=== PATIENT | female | born 1950 | race Caucasian/White ===

== ENCOUNTER → 2016-03-21 | Outpatient (CLI) | payer MEDICARE ==
[2016-03-21 15:48] LABS: CH 30.3; CHCM 33.6; HCT 38.4 % (34.0-46.0); HDW 2.74; HGB 12.9 gm/dL (11.4-16.0); MCH 30.4 pg (25.0-35.0); MCHC 33.6 g/dL (31.0-37.0); MCV 90.6 fL (80.0-100.0); Mean Platelet Volume 7.3; RBC 4.24 m/uL (3.80-5.40); RDW 13.6 % (11.5-15.5); WBC 6.6 k/uL (3.8-10.6)
[2016-03-21 15:55] LABS: Prothrombin Time 10.4 sec (9.0-12.0)
== END | disposition home or self-care (01) ==
LOC: LABWHC1 15:27
PROVIDERS: ATTEND Internal Medicine Gastroenterology
DX: K74.60 Unspecified cirrhosis of liver (principal)
CPT/HCPCS: 36415; 82105; 85027; 85610

== ENCOUNTER → 2016-09-12 | Outpatient (CLI) | payer MEDICARE ==
--- NOTE | 2016-09-13 13:53 | MM ---
Reason for exam: screening (asymptomatic). Last mammogram was performed 10 months ago. History: Patient is postmenopausal. Family history of breast cancer in mother at age 82 and breast cancer in aunt at age 53. Benign excisional biopsy of the right breast, 1984. Took estrogen for 20 years beginning at age 34. Physical Findings: A clinical breast exam by your physician is recommended on an annual basis and results should be correlated with mammographic findings. MG Screening Mammo w CAD Bilateral CC and MLO view(s) were taken. Prior study comparison: November 24, 2015, right breast MG diagnostic mammo RT w CAD. June 09, 2015, right breast MG work up mamm w CAD RT. There are scattered fibroglandular densities. Finding: There are grouped/clustered calcifications in the right breast. Increase in number of calcifications since November 24, 2015 and June 09, 2015. ASSESSMENT: Incomplete: need additional imaging evaluation, BI-RAD 0 RECOMMENDATION: Special view mammogram of the left breast. [facility] will attempt to contact patient to return for supplemental views.
== END | disposition home or self-care (01) ==
LOC: RADMAMWWP 12:30
PROVIDERS: ATTEND Internal Medicine
DX: Z12.31 Encounter for screening mammogram for malignant neoplasm of breast (principal); R92.2 Inconclusive mammogram

== ENCOUNTER → 2016-09-26 | Outpatient (CLI) | payer MEDICARE ==
--- NOTE | 2016-09-27 14:38 | MM ---
Reason for exam: additional evaluation requested from abnormal screening. Last mammogram was performed less than 1 month ago. History: Patient is postmenopausal. Family history of breast cancer in mother at age 82 and breast cancer in aunt at age 53. Benign excisional biopsy of the right breast, 1984. Took estrogen for 20 years beginning at age 34. Physical Findings: Nurse did not find any significant physical abnormalities on exam. MG Work Up Mamm w CAD LT LM, CC with magnification, and LM with magnification view(s) were taken of the left breast. Prior study comparison: September 12, 2016, bilateral MG screening mammo w CAD. November 24, 2015, right breast MG diagnostic mammo RT w CAD. June 09, 2015, right breast MG work up mamm w CAD RT. Finding: There are suspicious round, heterogeneous, grouped calcifications in the upper outer quadrant, posterior middle position of the left breast. Increase in number of calcifications since September 12, 2016, November 24, 2015, and June 09, 2015. These results were verbally communicated with the patient and result sheet given to the patient on 09/26/16. ASSESSMENT: Suspicious, BI-RAD 4 RECOMMENDATION: Stereotactic core biopsy of the left breast. Called with mammographic findings and has scheduled an appointment for the patient for 10/03/16t 11:[address] Pedraza. PRELIMINARY REPORT CALLED AND FAXED TO DR. PEDRAZA ON 09/26/16.AT 300/TMP.
== END | disposition home or self-care (01) ==
LOC: RADMAMWWP 10:52
PROVIDERS: ATTEND Internal Medicine
DX: R92.8 Other abnormal and inconclusive findings on diagnostic imaging of breast (principal)

== ENCOUNTER → 2016-10-07 | Day surgery (SDC) | payer MEDICARE ==
[2016-10-07 10:31] VITALS: RESP 16; TEMP 98.3; BMI 34.3
[2016-10-07 11:54] VITALS: BP 161/71; PULSE 67
--- NOTE | 2016-10-07 12:41 | MM ---
EXAMINATION TYPE: MG stereo VAD BX LT DATE OF EXAM: 10/07/2016 COMPARISON: Prior mammograms September 26, 2016 and older studies. CLINICAL HISTORY: Abnormal mammogram TECHNIQUE: Stereotactic guided core biopsy of left breast with clip placement and follow-up two-view mammogram. FINDINGS: The procedure of stereotactic guided core biopsy was explained to the patient. Benefits, alternatives, and risks were discussed. An informed consent was then obtained. [facility] was [facility]. Shortness pathway was cranial approach. I performed the localization none performed the remainder of the procedure. Overlying skin is cleansed. Lidocaine was used as anesthetic into the skin. Lidocaine with epinephrine is used as anesthetic into the deeper tissue. A vacuum assisted biopsy gun was used to obtain multiple core samples. The patient tolerated the procedure well without any immediate complication. The patient was kept in the radiology department for short stay after the procedure and then discharged home in stable condition. Targeted calcifications are identified in specimen mammogram. Post biopsy mammogram shows the clip to appear in satisfactory position relative to the targeted area of concern on the preprocedure images. No residual calcifications are evident. IMPRESSION: SUCCESSFUL, UNCOMPLICATED STEREOTACTIC GUIDED CORE BIOPSY OF AREA OF CONCERN IN THE LEFT BREAST, FULL PATHOLOGY RESULTS TO FOLLOW. Intermediate index of suspicion is noted at time of dictation. Pathology Results: High Risk BREAST, LEFT, CORE BIOPSY: FIBROCYSTIC CHANGES INCLUDING FEATURES SUGGESTIVE OF COALESCING ADENOSIS VERSUS PAPILLOMA WITH CALCIFICATIONS, CYSTS, AND COLUMNAR CELL HYPERPLASIA. Recommendation Surgical consult of the left breast. MARISSA
== END ==
LOC: RADMAMWWP 10:05
PROVIDERS: ATTEND Surgery
DX: N60.22 Fibroadenosis of left breast (principal); D24.2 Benign neoplasm of left breast; R92.0 Mammographic microcalcification found on diagnostic imaging of breast; R92.8 Other abnormal and inconclusive findings on diagnostic imaging of breast; N60.02 Solitary cyst of left breast; N62 Hypertrophy of breast
CPT/HCPCS: 88305; 19081; A4648; J2001

== ENCOUNTER 2016-10-24 10:36 | Day surgery (SDC) | payer MEDICARE ==
[2016-10-20 13:15] VITALS: BMI 34.3
[~2016-10-24 10:36] MED LIST: DEXAMETHASONE SOD PHOSPHATE 10 MG/ML 1 ML VIAL IV ONE; HEPARIN SODIUM,PORCINE 5,000 UNIT/ML 1 ML VIAL SQ ONE; HYDROmorphone 1 MG/ML 1 ML SYRINGE IVP PRN; LACTATED RINGERS 1,000 ML IV SCH; LIDOCAINE 1% 20 ML VIAL (10MG/ML) FOR IV START INTRADERMA PRN; MIDAZOLAM 2 MG/2 ML VIAL IV PRN; ONDANSETRON 4 MG/2 ML VIAL IVP ONE; Pre Op ABX Message 1 EACH MISC MISCELLANE ONE; SCOPOLAMINE 1.5MG/72HR PATCH TRANSDERM ONE
[2016-10-24 11:07] VITALS: TEMP 98.1
[2016-10-24] MEDS ORDERED: ALPRAZolam 0.25 MG TAB PO ONE (11:14)
[2016-10-24] MEDS ORDERED: LIDOCAINE 1% INJ 10MG/ML (20 ML MDV) SQ ONE (12:02)
[2016-10-24] MEDS ORDERED: PROPOFOL 10 MG/ML 20 ML VIAL IV ONE (13:06)
[2016-10-24] MEDS ORDERED: LIDOCAINE 1% INJ 10MG/ML (20 ML MDV) ONE (13:06)
[2016-10-24] MEDS ORDERED: fentaNYL (PF) 50 MCG/ML 2 ML AMP ONE (13:06)
[2016-10-24] MEDS ORDERED: MIDAZOLAM 2 MG/2 ML VIAL ONE (13:06)
[2016-10-24] MEDS ORDERED: hydrALAZINE HCL 20 MG/ML 1 ML VIAL ONE (13:06)
[2016-10-24] MEDS ORDERED: BUPIVACAINE (PF) 0.25% 30 ML VIAL SQ ONE (13:06)
[2016-10-24] MEDS ORDERED: SODIUM CHLORIDE 0.9% 100 ML with ceFAZolin 2,000 MG IV ONE ×2 (13:14)
--- NOTE | 2016-10-24 14:40 | P.OP ---
Date of Procedure: 10/24/16 Preoperative Diagnosis: Intraductal papilloma left breast Postoperative Diagnosis: Intraductal papilloma left breast Procedure(s) Performed: Left breast biopsy with needle localization Implants: Anesthesia: MAC Surgeon: Dejon Dailey Estimated Blood Loss (ml): 10 Pathology: other (Left breast biopsy) Condition: stable Disposition: same day Indications for Procedure: The patient is a 66-year-old white female was found to have a mammographic abnormality in the left breast in the upper outer quadrant area. Core biopsy revealed this to be a area of the coalescing adenomatosis versus papilloma with calcifications. Therefore excisional biopsy of this area was recommended with needle needle localization and informed consent was obtained procedure having been explained to her including potential complication particular bleeding infection hematoma seroma address she understood and agree to proceed. Operative Findings: Scarring from recent the core biopsy. Description of Procedure: After needle localization patient was taken to the operating room suite. The left breast and chest wall and axilla were prepped with Betadine and draped. The entry point of the wire was in the axilla and the other. Local anesthetic was infiltrated in the transverse incision was made along the skin crease wire and deepened through the subcutaneous tissue. Wide excision of the breast tissue around the wire was accomplished. The tip of the wire was embedded in the muscle fibers on the chest wall. Specimen mammography however revealed no clip in the specimen. Therefore, breast tissue was excised including an area that appeared to fairly well scarred from her previous biopsy with some umbilication of the tissue consistent with the recent biopsy area. X-ray of this however revealed no clip but it certainly looked like this was the area of the recent biopsy and abnormal liver tissue. Use intra-operative dressed tomography and no definite clip was identified in the breast tissue. The wound was irrigated the hemostasis was good and the field was dry. Subcutaneous tissues were then approximated with interrupted 4-0 Vicryl and the skin with 4-0 Monocryl subcuticular suture and Steri-Strips pressure dressing was applied. All counts were correct. Blood loss was less than 10 amounts. The patient made stable was transferred to the recovery room in good and stable condition.
--- NOTE | 2016-10-24 14:41 | P.DS ---
Providers Attending physician: Dejon Dailey Primary care physician: Stated None Plan - Discharge Summary New Discharge Prescriptions: New Hydrocodone/Acetaminophen [[place] 5-325] 1 each PO Q4HR PRN #20 tab PRN Reason: Moderate Pain No Action Albuterol Sulfate (Bottle) [Ventolin] 1 applic IH TID PRN PRN Reason: CHRONIC BRONCHITIS Latanoprost Ophth [Xalatan 0.005%] 1 drops BOTH EYES HS Omeprazole [PriLOSEC] 20 mg PO BID Multivitamins, Thera [Theragran] 1 each PO DAILY Aspirin 325 mg PO HS rOPINIRole HCL [Ropinirole HCl] 0.25 mg PO HS Ursodiol [Ursodiol] 500 mg PO BID Calcium Carbonate [Calcium] 1,200 mg PO DAILY Ibuprofen [Motrin] 400 mg PO Q6HR PRN PRN Reason: Pain Lysine [l-Lysine] 1,000 mg PO Q48H Dicyclomine [Bentyl] 10 mg PO QID Phenylephrine/Dm/Acetaminop/GG [Mucinex Fast-Max Cold-Flu Liq] 20 ml PO BID PRN PRN Reason: Congestion Discharge Medication List Albuterol Sulfate (Bottle) [Ventolin] 1 applic IH TID PRN 03/19/14 [History] Latanoprost Ophth [Xalatan 0.005%] 1 drops BOTH EYES HS 03/19/14 [History] Omeprazole [PriLOSEC] 20 mg PO BID 03/19/14 [History] Aspirin 325 mg PO HS 10/20/14 [History] Calcium Carbonate [Calcium] 1,200 mg PO DAILY 10/20/14 [History] Multivitamins, Thera [Theragran] 1 each PO DAILY 10/20/14 [History] Ursodiol [Ursodiol] 500 mg PO BID 10/20/14 [History] rOPINIRole HCL [Ropinirole HCl] 0.25 mg PO HS 10/20/14 [History] Ibuprofen [Motrin] 400 mg PO Q6HR PRN 10/05/16 [History] Dicyclomine [Bentyl] 10 mg PO QID 10/20/16 [History] Lysine [l-Lysine] 1,000 mg PO Q48H 10/20/16 [History] Phenylephrine/Dm/Acetaminop/GG [Mucinex Fast-Max Cold-Flu Liq] 20 ml PO BID PRN 10/20/16 [History] Hydrocodone/Acetaminophen [[place] 5-325] 1 each PO Q4HR PRN #20 tab 10/24/16 [Rx] Follow up Appointment(s)/Referral(s): Dejon Dailey MD [STAFF PHYSICIAN] - 1 Week Patient Instructions/Handouts: *[facility] - ([facility]) Breast Biopsy Instructions Discharge Disposition: HOME SELF-CARE
[2016-10-24 14:52] VITALS: RESP 18
--- NOTE | 2016-10-24 15:14 | MM ---
EXAMINATION TYPE: MG pre op needle loc LT, MG surgical specimen LT DATE OF EXAM: 10/24/2016 COMPARISON: Stereotactic biopsy dated 10/07/2016. CLINICAL HISTORY: High risk lesion of the left breast with pathology of coalescent adenosis versus pa pilloma with calcification, cyst and columnar cell hyperplasia. TECHNIQUE: Needle localization with wire placement and surgical excision of area of concern in the le ft breast. FINDINGS: The procedure of needle localization with wire placement and than surgical excision was exp lained to the patient. Benefits, alternatives, and risks were discussed. An informed consent was th en obtained. Approach was taken from a lateral medial direction. The overlying skin was prepped and draped in usua l sterile fashion. Lidocaine buffered with bicarbonate was used as anesthetic into the skin and subc utaneous tissue up to the level of area of concern. A 9 cm needle was used. It was placed via a lat eral medial approach under mammographic guidance. Subsequent 90 degrees mammogram show the needle to be in satisfactory position relative to the targeted area. At this point, wire was placed and the n eedle was withdrawn. The wire was fixed to patient's skin. Images were marked for surgeon. The humberto nforced segment is adjacent to the biopsy marker, just posterior and within the mammographic mass. Re inforced segment and biopsy marker approximately 7.4 cm from the skin entry site and distal end of th e wire is approximately 9.2 cm from the skin entry site. The patient tolerated the procedure well without any immediate complication. The patient was kept in the radiology department for short stay after the procedure and then taken to surgery for surgical e xcision. The localization wire is identified in specimen mammogram, however the biopsy marker was not present. The patient was kept in hospital for short stay after the procedure and then discharged ho il in stable condition. IMPRESSION: Successful, uncomplicated needle localization with wire placement and surgical excision o f the region of pathologically proven high risk lesion in the left breast, full pathology results to follow.
[2016-10-24 16:32] VITALS: BP 139/80; PULSE 91
== END 2016-10-24 16:50 | disposition home or self-care (01) ==
LOC: OR 10:36
PROVIDERS: ATTEND Surgery
DX: D24.2 Benign neoplasm of left breast (principal); Z78.0 Asymptomatic menopausal state; M19.90 Unspecified osteoarthritis, unspecified site; F32.9 Major depressive disorder, single episode, unspecified; H40.9 Unspecified glaucoma; K76.9 Liver disease, unspecified; K74.3 Primary biliary cirrhosis; J45.909 Unspecified asthma, uncomplicated; G25.81 Restless legs syndrome; Z86.73 Personal history of transient ischemic attack (TIA), and cerebral infarction without residual deficits; Z79.82 Long term (current) use of aspirin; Z79.899 Other long term (current) drug therapy; Z88.2 Allergy status to sulfonamides; Z91.048 Other nonmedicinal substance allergy status
CPT/HCPCS: 76098; 19281; 19125; J2250; J0360; J1644; J1100; J2405; J2001; J3010; J0690; J2704

== ENCOUNTER → 2017-04-13 | Outpatient (CLI) | payer MEDICARE ==
--- NOTE | 2017-04-13 11:32 | US ---
EXAMINATION TYPE: US liver DATE OF EXAM: 04/13/2017 COMPARISON: NONE CLINICAL HISTORY: K74.60 CIRRHOSIS OF LIVER. Pt has hard time taking in a deep breath and holding it EXAM MEASUREMENTS: Liver Length: 14.2 cm Gallbladder Wall: Surgically absent cm CBD: 0.3 cm Right Kidney: 10.9x 4.2 x 5.4 cm Pancreas: Obscured by bowel gas Liver: portal vein demonstrates hepatopedal flow ,liver course heterogeneous echotexture, difficult to assess scan intercostally Gallbladder: Surgically absent Evidence for sonographic Mulligan's sign: Surgically absent CBD: wnl Right Kidney: wnl IMPRESSION: 1. Coarse echotexture which may reflect diffuse hepatocellular disease. 2. The gallbladder surgically absent.
== END | disposition home or self-care (01) ==
LOC: RADUSWWP 09:26
PROVIDERS: ATTEND Internal Medicine Gastroenterology
DX: K74.60 Unspecified cirrhosis of liver (principal); Z90.49 Acquired absence of other specified parts of digestive tract
CPT/HCPCS: 76705

== ENCOUNTER → 2017-11-28 | Outpatient (CLI) | payer MEDICARE ==
--- NOTE | 2017-11-30 09:32 | MM ---
Reason for exam: screening (asymptomatic). Last mammogram was performed 6 months ago. History: Patient is postmenopausal and has history of high-risk lesion on a previous biopsy at age 66. Family history of breast cancer in mother at age 82 and breast cancer in aunt at age 53. Benign MG pre op needle loc LT of the left breast, October 24, 2016. High risk MG stereo VAD BX LT of the left breast, October 07, 2016. Benign excisional biopsy of the right breast, 1984. Took estrogen for 20 years beginning at age 34. Physical Findings: A clinical breast exam by your physician is recommended on an annual basis and results should be correlated with mammographic findings. MG Screening Mammo w CAD Bilateral CC and MLO view(s) were taken. Prior study comparison: June 09, 2017, left breast MG diagnostic mammo LT w CAD. September 26, 2016, left breast MG work up mamm w CAD LT. The breast tissue is heterogeneously dense. This may lower the sensitivity of mammography. Previous mammotome biopsy in the left breast. There is chronic nodularity bilaterally. No significant changes when compared with prior studies. ASSESSMENT: Benign, BI-RAD 2 RECOMMENDATION: Routine screening mammogram of both breasts in 1 year.
== END | disposition home or self-care (01) ==
LOC: RADMAMWWP 11:00
PROVIDERS: ATTEND Internal Medicine
DX: Z12.31 Encounter for screening mammogram for malignant neoplasm of breast (principal)
CPT/HCPCS: 77067

== ENCOUNTER → 2018-06-06 | Outpatient (CLI) | payer MEDICARE ==
--- NOTE | 2018-06-06 10:18 | US ---
EXAMINATION TYPE: US liver DATE OF EXAM: 06/06/2018 COMPARISON: US CLINICAL HISTORY: K74.60 Unspecified cirrhosis of liver; gallbladder removed EXAM MEASUREMENTS: Liver Length: 14.7 cm Gallbladder Wall: surgically removed CBD: 0.5 cm Right Kidney: 9.6 x 5.6 x 4.4 cm Pancreas: hyperechoic Liver: Coarsened hepatic echotexture seen throughout, limiting evaluation for hepatic masses. No foca l mass is seen on today's examination. No intrahepatic biliary ductal dilatation. Evidence for sonographic Mulligan's sign: no CBD: wnl Right Kidney: No hydronephrosis or masses seen Main Portal Vein flow and Common Hepatic Artery Flow is hepatopetal; Hepatic Vein Flow is to IVC. Low resistance waveform is seen of the main portal vein. IMPRESSION: Again coarsened hepatic echotexture of the underlying known hepatocellular disease. No fo cathi mass is seen although screening MRI in this high-risk patient for hepatocellular carcinoma could be performed. No evidence of portal venous hypertension at this time.
== END | disposition home or self-care (01) ==
LOC: RADUSWWP 09:14
PROVIDERS: ATTEND Internal Medicine Gastroenterology
DX: K76.89 Other specified diseases of liver (principal)
CPT/HCPCS: 76705

== ENCOUNTER → 2019-03-04 | Outpatient (CLI) | payer MEDICARE ==
--- NOTE | 2019-03-06 10:15 | MM ---
Reason for exam: screening (asymptomatic). Last mammogram was performed 1 year and 3 months ago. History: Patient is postmenopausal and has history of high-risk lesion on a previous biopsy at age 66. Family history of breast cancer in mother at age 82 and breast cancer in aunt at age 53. Benign MG pre op needle loc LT of the left breast, October 24, 2016. High risk MG stereo VAD BX LT of the left breast, October 07, 2016. Benign excisional biopsy of the right breast, 1984. Took estrogen for 20 years beginning at age 34. Physical Findings: A clinical breast exam by your physician is recommended on an annual basis and results should be correlated with mammographic findings. MG 3D Screening Mammo W/Cad Bilateral CC and MLO view(s) were taken. Prior study comparison: November 28, 2017, bilateral MG screening mammo w CAD. June 09, 2017, left breast MG diagnostic mammo LT w CAD. Previous mammotome biopsy in the left breast. There is chronic nodularity bilaterally. No significant changes when compared with prior studies. ASSESSMENT: Benign, BI-RAD 2 RECOMMENDATION: Routine screening mammogram of both breasts in 1 year.
== END | disposition home or self-care (01) ==
LOC: RADMAMWWP 14:52
PROVIDERS: ATTEND Internal Medicine
DX: Z12.39 Encounter for other screening for malignant neoplasm of breast (principal)
CPT/HCPCS: 77063; 77067

== ENCOUNTER → 2019-04-09 | Outpatient (CLI) | payer MEDICARE ==
--- NOTE | 2019-04-09 13:55 | XR ---
EXAMINATION TYPE: XR chest 2V DATE OF EXAM: 04/09/2019 COMPARISON: 03/03/2008 HISTORY: Cough and shortness of breath TECHNIQUE: Frontal and lateral views of the chest are obtained. FINDINGS: There is no focal air space opacity, pleural effusion, or pneumothorax seen. The cardiac silhouette size is within normal limits. The osseous structures are intact. Large hiatal hernia in the retrocardiac airspace is new from the prior. Mild degenerative change of the spine. Diffuse osseo us demineralization. IMPRESSION: New large hiatal hernia. No acute cardiopulmonary process.
== END | disposition home or self-care (01) ==
LOC: RADXRYALE 13:36
PROVIDERS: ATTEND Internal Medicine
DX: K44.9 Diaphragmatic hernia without obstruction or gangrene (principal)
CPT/HCPCS: 71046

== ENCOUNTER → 2019-08-19 | Outpatient (CLI) | payer MEDICARE ==
--- NOTE | 2019-08-19 14:44 | US ---
EXAMINATION TYPE: US liver DATE OF EXAM: 08/19/2019 COMPARISON: Liver ultrasound June 06, 2018. CLINICAL HISTORY: K74.60 Cirrhosis of liver. Cirrhosis. Exam limitations due to body habitus. EXAM MEASUREMENTS: Liver Length: 14.2 cm Gallbladder Wall: Surgically absent CBD: .5 cm Right Kidney: 10.6 x 4.6 x 4.0 cm Pancreas: Tail obscured by overlying bowel gas Liver: Increased attenuation limited due to bowel gas and rib shadowing. Gallbladder: Surgically absent Evidence for sonographic Mulligan's sign: No CBD: wnl Right Kidney: Limited. Persistent heterogeneous hyperechoic appearance of visualized liver. No new intrahepatic ductal dilat ation. Evaluation is suboptimal due to the heterogeneity and patient's body habitus. No significant a scites noted. IMPRESSION: Overall stable findings, heterogeneous hyperechoic of the liver felt on basis of known he patocellular disease and/or diffuse fatty infiltration.
== END | disposition home or self-care (01) ==
LOC: RADUSWWP 12:52
PROVIDERS: ATTEND Internal Medicine Gastroenterology
DX: K74.60 Unspecified cirrhosis of liver (principal)
CPT/HCPCS: 76705

== ENCOUNTER → 2020-03-10 | Outpatient (CLI) | payer MEDICARE ==
--- NOTE | 2020-03-10 11:36 | US ---
EXAMINATION TYPE: US liver DATE OF EXAM: 03/10/2020 COMPARISON: NONE CLINICAL HISTORY: 69-year-old female K74.60 Unspecified cirrhosis. Prior cholecystectomy TECHNIQUE: Multiple sonographic images of the right upper quadrant are obtained. FINDINGS: EXAM MEASUREMENTS: Liver Length: 14.3 cm Gallbladder: Surgically absent CBD: 0.5 cm Right Kidney: 9.9 x 3.9 x 4.4 cm Special Library Librarian notes:*Technical limitations due to patient's body habitus and large amount of overlying bowel content Pancreas: Tail obscured by overlying bowel gas Liver: limited visualization/evaluation; visualized portions appear attenuating. Gallbladder: Surgically absent Evidence for sonographic Mulligan's sign: no CBD: appears wnl Right Kidney: no evidence of hydronephrosis IMPRESSION: 1. Technically limited exam due to bowel gas and patient body habitus. 2. Visualized portions of the liver show an attenuating appearance suggesting hepatic steatosis. 3. No biliary ductal dilatation. Status post cholecystectomy.
== END | disposition home or self-care (01) ==
LOC: RADUSWWP 08:51
PROVIDERS: ATTEND Internal Medicine Gastroenterology
DX: K74.60 Unspecified cirrhosis of liver (principal); Z90.49 Acquired absence of other specified parts of digestive tract
CPT/HCPCS: 76705

== ENCOUNTER → 2020-08-28 | Outpatient (CLI) | payer MEDICARE | END | disposition home or self-care (01) | CPT/HCPCS: 77067 ==

== ENCOUNTER → 2021-04-07 | Outpatient (CLI) | payer MEDICARE ==
[2021-04-07 18:36] LABS: African American GFR (CKD) 99.6 (60.0-200.0); Anion Gap 13.1 mmol/L (10.00-18.00); BUN/Creat Ratio 13.57 Ratio (12.00-20.00); Blood Urea Nitrogen 9.5 mg/dL (9.0-27.0); Calcium 9.3 mg/dL (8.7-10.3); Carbon Dioxide 23.9 mmol/L (20.0-27.5); Potassium 3.9 mmol/L (3.5-5.5)
[2021-04-07 18:44] LABS: Basophils # (A) 0.04 X 10*3/uL (0.00-0.10); Basophils % (A) 0.8 %; Eosinophils # (A) 0.12 X 10*3/uL (0.04-0.35); Eosinophils % (A) 2.3 %; HGB 11.4 g/dL (12.0-15.0); Immature Grans, Automated 0.6 %; Lymphocytes % (A) 33.8 %; MCH 26.2 pg (27.0-32.0); MCHC 30.8 g/dL (32.0-37.0); MCV 85.1 fL (80.0-97.0); Mean Platelet Volume 9.7 fL (9.5-12.2); Monocytes % (A) 9.4 %; NRBC Per 100 WBC 0 /100 WBCS (0.0-0.0); Neutrophils # (A) 2.84 X 10*3/uL (1.80-7.70); Neutrophils % (A) 53.1 %; Platelet Count 315 X 10*3/uL (140-440); RBC 4.35 X 10*6/uL (4.10-5.20); RDW 17.3 % (11.5-14.5); WBC 5.33 X 10*3/uL (4.50-10.00)
== END | disposition home or self-care (01) ==
LOC: LABWHC1 11:17
PROVIDERS: ATTEND Registered Nurse
DX: D64.9 Anemia, unspecified (principal); E87.6 Hypokalemia
CPT/HCPCS: 36415; 80048; 85025

== ENCOUNTER → 2021-04-07 | Outpatient (CLI) | payer MEDICARE ==
[2021-04-07 18:30] LABS: Basophils # (A) 0.04 X 10*3/uL (0.00-0.10); Basophils % (A) 0.7 %; Eosinophils # (A) 0.15 X 10*3/uL (0.04-0.35); Eosinophils % (A) 2.8 %; HCT 36.7 % (37.2-46.3); HGB 11.5 g/dL (12.0-15.0); Immature Grans, Automated 0.2 %; Lymphocytes # (A) 1.65 X 10*3/uL (0.90-5.00); Lymphocytes % (A) 30.6 %; MCH 26.7 pg (27.0-32.0); MCHC 31.3 g/dL (32.0-37.0); MCV 85.2 fL (80.0-97.0); Mean Platelet Volume 9.5 fL (9.5-12.2); Monocytes # (A) 0.52 X 10*3/uL (0.20-1.00); Monocytes % (A) 9.6 %; NRBC Per 100 WBC 0 /100 WBCS (0.0-0.0); Neutrophils # (A) 3.02 X 10*3/uL (1.80-7.70); Neutrophils % (A) 56.1 %; Platelet Count 309 X 10*3/uL (140-440); RBC 4.31 X 10*6/uL (4.10-5.20); RDW 17.4 % (11.5-14.5); WBC 5.39 X 10*3/uL (4.50-10.00)
== END | disposition home or self-care (01) ==
LOC: LABPAT 11:12
PROVIDERS: ATTEND Surgery
DX: Z01.812 Encounter for preprocedural laboratory examination (principal); K21.00 Gastro-esophageal reflux disease with esophagitis, without bleeding
CPT/HCPCS: 83036; 85025

== ENCOUNTER 2021-04-14 12:11 | Observation (INO) | payer MEDICARE ==
[~2021-04-14 12:11] MED LIST changes: +ACETAMINOPHEN TAB 500 MG TAB PO PRN; -DEXAMETHASONE SOD PHOSPHATE 10 MG/ML 1 ML VIAL IV ONE; -HEPARIN SODIUM,PORCINE 5,000 UNIT/ML 1 ML VIAL SQ ONE; +HEPARIN SODIUM,PORCINE/PF 5,000 UNIT/0.5 ML SYRINGE SQ PRN; -HYDROmorphone 1 MG/ML 1 ML SYRINGE IVP PRN; -LACTATED RINGERS 1,000 ML IV SCH; -LIDOCAINE 1% 20 ML VIAL (10MG/ML) FOR IV START INTRADERMA PRN; -MIDAZOLAM 2 MG/2 ML VIAL IV PRN; -ONDANSETRON 4 MG/2 ML VIAL IVP ONE; -Pre Op ABX Message 1 EACH MISC MISCELLANE ONE; -SCOPOLAMINE 1.5MG/72HR PATCH TRANSDERM ONE
[2021-04-14] MEDS ORDERED: LACTATED RINGERS 1,000 ML IV ONE ×2 (13:08→15:34)
[2021-04-14] MEDS ORDERED: DEXAMETHASONE SOD PHOSPHATE 4 MG/ML 1 ML VIAL IVP ONE (13:21)
[2021-04-14] MEDS: ONDANSETRON 4 MG/2 ML VIAL ONE ×2 (13:21→16:23)
[2021-04-14] MEDS ORDERED: MIDAZOLAM 2 MG/2 ML VIAL IVP ONE (13:27)
--- NOTE | 2021-04-14 13:58 | P.GSHP ---
History of Present Illness H&P Date: 04/14/21 Chief Complaint: GERD, hiatal hernia This is a 71-year-old female who's had chronic issues GERD and dysphagia. Patient has a large paraesophageal hiatal hernia with intrathoracic stomach. Past Medical History Past Medical History: CVA/TIA, Eye Disorder, GERD/Reflux, Hearing Disorder / Deafness, Hypertension, Liver Disease, Osteoarthritis (OA), Pneumonia, Respiratory Disorder Additional Past Medical History / Comment(s): TIA- 2008 WITH MILD MEMORY CHANGES.,RLS, AUTOIMMUNE DISORDER - BILIARY CIRRHOSIS, VITILIGO. GLAUCOMA. CHRONIC BRONCHITIS., HIATAL HERNIA., RECENT HOSPITALIZATION 03/08/21-03/15/21 FOR SMALL BOWEL OBSTRUCTION AND PNEUMONIA -PROBABLE COVID EVEN THOUGH TESTS WERE NEGATIVE., BILATERAL HEARING AIDS. History of Any Multi-Drug Resistant Organisms: None Reported Past Surgical History: Bladder Surgery, Cholecystectomy, Hysterectomy, Joint Replacement, Tonsillectomy Additional Past Surgical History / Comment(s): Cyst removed from Lt Breast. Hemorrhoidectmy. Calos TOTAL Knees Past Anesthesia/Blood Transfusion Reactions: No Reported Reaction Past Psychological History: Anxiety, Depression Additional Psychological History / Comment(s): . Smoking Status: Never smoker Past Alcohol Use History: Rare Additional Past Alcohol Use History / Comment(s): SMOKED TEEN, 4 YEARS, <1PPD. Past Drug Use History: None Reported - Past Family History Father Family Medical History: No Reported History Mother Family Medical History: Cancer Medications and Allergies Home Medications Medication Instructions Recorded Confirmed Type Latanoprost Ophth [Xalatan 0.005%] 1 drop BOTH EYES HS 03/19/14 04/09/21 History Omeprazole [PriLOSEC] 20 mg PO BID 03/19/14 04/09/21 History Multivitamins, Thera [Multivitamin 1 tab PO DAILY 10/20/14 04/09/21 History (formulary)] Dicyclomine [Bentyl] 10 mg PO ACHS PRN 10/20/16 04/09/21 History ALPRAZolam [Xanax] 0.25 mg PO BID PRN 03/08/21 04/09/21 History Alendronate Sodium 70 mg PO SA 03/08/21 04/09/21 History Fluticasone Nasal [place] [Flonase 1 spray EA NOSTRIL DAILY 03/08/21 04/09/21 History Nasal Marshall] Gabapentin [Neurontin] 100 mg PO BID 03/08/21 04/09/21 History Losartan Potassium [Cozaar] 25 mg PO DAILY 03/08/21 04/09/21 History Venlafaxine HCl [Effexor] 75 mg PO HS 03/08/21 04/09/21 History rOPINIRole HCL [Requip] 0.5 mg PO HS 03/08/21 04/09/21 History Albuterol Inhaler [Ventolin Hfa 2 puff INHALATION DIRECTED PRN 04/09/21 04/09/21 History Inhaler] Calcium (Unknown Dose) 2 tab PO DAILY 04/09/21 History Ibuprofen 200 - 600 mg PO DIRECTED PRN 04/09/21 04/09/21 History Iron 18 mg PO DAILY 04/09/21 04/09/21 History Vit C/E/Zn/Coppr/Lutein/Zeaxan 2 each PO DAILY 04/09/21 04/09/21 History [Preservision Areds 2 Softgel] ursodioL [Actigall] 500 mg PO BID 04/09/21 04/09/21 History Allergies Allergy/AdvReac Type Severity Reaction Status Date / Time adhesive Allergy Rash/Hives Verified 04/14/21 12:37 mold Allergy CONGESTION Verified 04/14/21 12:37 pollen extracts Allergy CONGESTION Verified 04/14/21 12:37 Sulfa (Sulfonamide Allergy Rash/Hives Verified 04/14/21 12:37 Antibiotics) acetaminophen [From Tylenol] AdvReac Unknown states no Verified 04/14/21 12:37 Tylenol due to Liver disease. Surgical - Exam Vital Signs Temp Pulse Resp BP Pulse Ox 97.2 F L 101 H 16 150/78 96 04/14/21 13:11 04/14/21 13:11 04/14/21 13:11 04/14/21 13:11 04/14/21 13:11 - General well developed, well nourished, no distress - Eyes PERRL - ENT normal pinna - Neck no masses - Respiratory normal expansion - Cardiovascular Rhythm: regular - Abdomen Abdomen: soft, non tender Assessment and Plan Assessment: GERD, dysphagia, large paraesophageal hernia with intrathoracic stomach We'll perform laparoscopic repair
[2021-04-14] MEDS ORDERED: fentaNYL (PF) 50 MCG/ML 2 ML AMP ONE (14:18)
[2021-04-14] MEDS ORDERED: NEOSTIGMINE 1 MG/ML 10 ML VIAL ONE (14:18)
[2021-04-14] MEDS ORDERED: LIDOCAINE 1% INJ 10MG/ML (20 ML MDV) ONE (14:18)
[2021-04-14] MEDS ORDERED: MIDAZOLAM 2 MG/2 ML VIAL ONE (14:18)
[2021-04-14] MEDS ORDERED: GLYCOPYRROLATE 0.2 MG/ML 2 ML VIAL ONE (14:18)
[2021-04-14] MEDS ORDERED: PROPOFOL 10 MG/ML 20 ML VIAL IV ONE (14:18)
[2021-04-14] MEDS ORDERED: SUCCINYLCHOLINE CHLORIDE 100 MG/5 ML SYR IV ONE (14:18)
[2021-04-14] MEDS ORDERED: ROCURONIUM 10 MG/ML (5 ML VIAL) IV ONE (14:18)
[2021-04-14] MEDS ORDERED: BUPIVACAIN-EPI 0.25%-1:200,000 30 ML VIAL SQ ONE (14:54)
--- NOTE | 2021-04-14 15:44 | P.OP ---
Date of Procedure: 04/14/21 Preoperative Diagnosis: GERD Dysphagia Large paraesophageal hiatal hernia with intrathoracic stomach Postoperative Diagnosis: Same Procedure(s) Performed: Laparoscopic repair of paraesophageal hiatal hernia with mesh Anesthesia: MAC Surgeon: Ace Nieto Estimated Blood Loss (ml): 5 Pathology: none sent Condition: stable Disposition: PACU Description of Procedure: The patient was placed on the operating table in the supine position. She received general anesthesia. She was then placed in dorsal lithotomy position. Her abdomen was prepped and draped in the usual sterile fashion. The skin incision sites were anesthetized with 1% local Xylocaine. The skin was incised in the left periumbilical area with an 11 scalpel. Using a 5 mm blade was trocar under direct visitation the peritoneal cavity was entered. And then insufflated. After adequate insufflation the laparoscope was placed back into the peritoneal cavity. Next a 5 mm trocar was placed in the right epigastric and then the right lateral position. Another 5 mm trochars placed in the left lateral position. Another 5 mm trocar placed in the left epigastric position. And the original left periumbilical trocar was exchanged for a 10 mm trocar. The left lateral lobe liver was retracted. The patient had a large paraesophageal hiatal hernia. Approximately 70% the stomach was in the chest. The stomach was reduced with gentle traction. The hiatal hernia sac was lysed. In the stomach was completely reduced into the stomach. Care was taken to identify and preserve the esophagus. The Jong was then repaired with 2-0 Ethibond suture. Care was taken to make sure the citlali was not too tight. After the crural repair was performed a piece of [employer] a mesh was placed over top of the repair and secured with 2-0 Ethibond suture. And was areas of bleeding seen. The trochars withdrawn. The skin was closed with interrupted 3-0 Monocryl suture. Dermabond was applied. Patient top she will was sent to recovery in stable condition.
[2021-04-14] MEDS: HYDROmorphone 0.5 MG/0.5 ML SYRINGE IVP ONE ×2 (16:03→16:13)
[2021-04-14] MEDS ORDERED: LABETALOL SYRINGE 5 MG/ML IVP ONE (16:38)
[2021-04-14] MEDS: D5-0.45% NACL WITH KCL 20MEQ/L 1,000 ML IV SCH (19:24)
[2021-04-14] MEDS: HYDROmorphone 1 MG/ML 1 ML SYRINGE IVP PRN (20:42)
[2021-04-15] MEDS: HYDROmorphone 1 MG/ML 1 ML SYRINGE IVP PRN ×2 (00:47→08:15)
[2021-04-15 05:00] VITALS: RESP 16
[2021-04-15] MEDS: D5-0.45% NACL WITH KCL 20MEQ/L 1,000 ML IV SCH ×2 (05:40→12:21)
[2021-04-15] MEDS ORDERED: ENOXAPARIN 30 MG/0.3 ML SYRINGE SQ SCH (09:00)
[2021-04-15] MEDS ORDERED: ONDANSETRON 4 MG/2 ML VIAL IVP PRN (09:05)
--- NOTE | 2021-04-15 10:09 | FL ---
SINGLE CONTRAST ESOPHAGRAM: CLINICAL HISTORY: 71-year-old female status post hiatal hernia repair other intrathoracic stomach, r ule out leak/obstruction. TECHNIQUE: Single contrast exam performed with 50 ml Isovue-370 contrast. Total fluoroscopy time: 1 minute 7 seconds. Total images: 22. COMPARISON: CT 03/12/2021 FINDINGS: The patient swallowed oral contrast without difficulty or delay. Esophageal peristalsis and motility are within normal limits. There are postsurgical change of hiatal hernia repair with prompt passage of contrast from the esophagus into the stomach. Initial mild delay in complete clearance. Dry swall owing promotes complete clearance. There is no evidence of contrast extravasation to suggest leak. No significant postsurgical free air is identified. Patchy bibasilar opacities are noted in the lungs . IMPRESSION: 1. No evidence of leak or significant obstruction status post hiatal hernia repair. 2. Patchy bibasilar infiltrates. Clinically correlate. No significant postsurgical free air is identi fied.
[2021-04-15 10:24] LABS: Basophils % (A) 0 %; Eosinophils % (A) 0 %; HGB 11.9 gm/dL (11.4-16.0); Hypochromasia Slight; Lymphocytes % (A) 16 %; MCH 27.2 pg (25.0-35.0); MCHC 31.3 g/dL (31.0-37.0); Mean Platelet Volume 6.9; Monocytes # (A) 0.8 k/uL (0-1.0); Monocytes % (A) 6 %; Neutrophils # (A) 9.3 k/uL (1.3-7.7); Neutrophils % (A) 76 %; Platelet Count 468 k/uL (150-450); RBC 4.37 m/uL (3.80-5.40); RDW 15.9 % (11.5-15.5); WBC 12.3 k/uL (3.8-10.6)
[2021-04-15 10:39] LABS: African American GFR (CKD) >90 (>60 ml/min/1.73 sqM); Anion Gap 7 mmol/L; Blood Urea Nitrogen 9 mg/dL (7-17); Carbon Dioxide 27 mmol/L (22-30); Chloride 103 mmol/L (98-107); Glucose 112 mg/dL (74-99); Non-African American GFR(CKD) 89 (>60 ml/min/1.73 sqM); Potassium 4.1 mmol/L (3.5-5.1); Sodium 137 mmol/L (137-145)
[2021-04-15] MEDS: SIMETHICONE 40 MG/0.6 ML DROPS 2,000 MG/30 ML BOTTLE PO SCH ×2 (11:19→12:20)
[2021-04-15 11:46] VITALS: BP 137/82; TEMP 97.9
[2021-04-15] MEDS ORDERED: traMADol 50 MG TAB PO PRN (12:13)
[2021-04-15 12:21] VITALS: BMI 35.4
[2021-04-15] MEDS ORDERED: ALPRAZolam 0.25 MG TAB PO PRN (13:15)
[2021-04-15] MEDS ORDERED: ALBUTEROL NEBULIZED 2.5 MG/3 ML INHALATION SCH (13:30)
[2021-04-15] MEDS ORDERED: PANTOPRAZOLE 40 MG/10 ML VIAL IVP SCH (13:30)
--- NOTE | 2021-04-15 14:27 | P.DS ---
Providers Date of admission: 04/15/21 12:24 Expected date of discharge: 04/15/21 Attending physician: Ace Nieto Consults: 04/14/21 15:44 Consult Physician Routine Consulting Provider: aMia Steele Consult Reason/Comments: Medical management Do you want consulting provider notified?: Yes Primary care physician: Annette Pedraza Hospital Course: Discharge diagnosis 1. GERD, dysphagia, large paraesophageal hired hernia with intrathoracic stomach status post Laparoscopic repair of paraesophageal hiatal hernia with mesh 2. Possible atelectasis contributing to patient's leukocytosis Hospital course This is a 71-year-old female with history of GERD and dysphagia and large paraesophageal hiatal hernia with intrathoracic stomach. She is status post Laparoscopic repair of paraesophageal hiatal hernia with mesh. Patient tolerated surgery well. Upper GI shows no evidence of leak or obstruction. No significant postsurgical free air identified. Patient is tolerating these included liquid diet. She is up and ambulating. She is afebrile. Her pain is controlled. She is stable for discharge. Please refer to chart for any further details. Physician Manager Patient note has been reviewed by physician. Signing provider agrees with the documented findings, assessment, and plan of care. Patient Condition at Discharge: Stable Plan - Discharge Summary Discharge Rx Participant: No New Discharge Prescriptions: New traMADol HCL [Ultram] 50 mg PO Q6HR PRN 3 Days #12 tab PRN Reason: Pain Simethicone 40 mg/0.6 ml Drops [Mylicon Drops] 40 mg PO QID ml Continue Latanoprost Ophth [Xalatan 0.005%] 1 drop BOTH EYES HS Omeprazole [PriLOSEC] 20 mg PO BID Multivitamins, Thera [Multivitamin (formulary)] 1 tab PO DAILY Dicyclomine [Bentyl] 10 mg PO ACHS PRN PRN Reason: Gi Upset rOPINIRole HCL [Requip] 0.5 mg PO HS Losartan Potassium [Cozaar] 25 mg PO DAILY ALPRAZolam [Xanax] 0.25 mg PO BID PRN PRN Reason: Anxiety Albuterol Inhaler [Ventolin Hfa Inhaler] 2 puff INHALATION DIRECTED PRN PRN Reason: Shortness Of Breath Calcium (Unknown Dose) 2 tab PO DAILY Venlafaxine HCl [Effexor] 75 mg PO HS Gabapentin [Neurontin] 100 mg PO BID Fluticasone Nasal Weston [Flonase Nasal Weston] 1 spray EA NOSTRIL DAILY Alendronate Sodium 70 mg PO SA ursodioL [Actigall] 500 mg PO BID Ibuprofen 200 - 600 mg PO DIRECTED PRN PRN Reason: Pain Vit C/E/Zn/Coppr/Lutein/Zeaxan [Preservision Areds 2 Softgel] 2 each PO DAILY Iron 18 mg PO DAILY Discharge Medication List Latanoprost Ophth [Xalatan 0.005%] 1 drop BOTH EYES HS 03/19/14 [History] Omeprazole [PriLOSEC] 20 mg PO BID 03/19/14 [History] Multivitamins, Thera [Multivitamin (formulary)] 1 tab PO DAILY 10/20/14 [History] Dicyclomine [Bentyl] 10 mg PO ACHS PRN 10/20/16 [History] ALPRAZolam [Xanax] 0.25 mg PO BID PRN 03/08/21 [History] Alendronate Sodium 70 mg PO SA 03/08/21 [History] Fluticasone Nasal Weston [Flonase Nasal Weston] 1 spray EA NOSTRIL DAILY 03/08/21 [History] Gabapentin [Neurontin] 100 mg PO BID 03/08/21 [History] Losartan Potassium [Cozaar] 25 mg PO DAILY 03/08/21 [History] Venlafaxine HCl [Effexor] 75 mg PO HS 03/08/21 [History] rOPINIRole HCL [Requip] 0.5 mg PO HS 03/08/21 [History] Albuterol Inhaler [Ventolin Hfa Inhaler] 2 puff INHALATION DIRECTED PRN 04/09/21 [History] Calcium (Unknown Dose) 2 tab PO DAILY 04/09/21 [History] Ibuprofen 200 - 600 mg PO DIRECTED PRN 04/09/21 [History] Iron 18 mg PO DAILY 04/09/21 [History] Vit C/E/Zn/Coppr/Lutein/Zeaxan [Preservision Areds 2 Softgel] 2 each PO DAILY 04/09/21 [History] ursodioL [Actigall] 500 mg PO BID 04/09/21 [History] Simethicone 40 mg/0.6 ml Drops [Mylicon Drops] 40 mg PO QID ml 04/15/21 [Rx] traMADol HCL [Ultram] 50 mg PO Q6HR PRN 3 Days #12 tab 04/15/21 [Rx] Follow up Appointment(s)/Referral(s): Ace Nieto MD [STAFF PHYSICIAN] - 1 Week Annette Pedraza MD [Primary Care Provider] - 3 Days Activity/Diet/Wound Care/Special Instructions: No lifting over 10 pounds You may shower. No soaking or tub baths for 2 weeks Very light activity until you are reevaluated at your follow up appointment with your surgeon Continue to use incentive spirometer at home Continue to do deep breathing exercises Recommend repeating CBC in 3 days Discharge Disposition: HOME SELF-CARE
--- NOTE | 2021-04-15 14:43 | CONS ---
CONSULTATION REASON FOR CONSULTATION: Advice regarding GERD and hypertension, requested by Dr. Nieto. HISTORY OF PRESENT ILLNESS: This 71-year-old woman with a past medical history of hypertension, history of liver disease, DJD, being followed by Dr. Pedraza in the outpatient setting, underwent laparoscopic repair of paraesophageal hiatal hernia with mesh. The patient is complaining of some pain in the back and the neck also. No chest pain. No palpitations. No fever. No shortness of breath. PAST MEDICAL HISTORY: History of chronic liver disease, hypertension, DJD, history of pneumonia. MEDICATIONS: Home medications are reviewed and include Requip, Effexor. Doses and other medications are reviewed. ALLERGIES: ALLERGIES INCLUDE ADHESIVES, MOLD, POLLEN EXTRACT. Reviewed. FAMILY HISTORY: No history of heart disease or strokes in the family. SOCIAL HISTORY: No history of smoking, alcohol. REVIEW OF SYSTEMS: Fourteen-point review of systems negative except as mentioned earlier. PHYSICAL EXAMINATION: Pulse 73, blood pressure 121/60, respirations 16. CARDIOVASCULAR: S1, S2 muffled. No S3. No S4. RESPIRATION: Breath sounds diminished at the bases. A few scattered rhonchi and crackles. ABDOMEN: Soft. Status post surgery. LEGS: No edema. No swelling. NERVOUS SYSTEM: Higher functions as mentioned earlier. Moves all 4 limbs. No focal deficit. SKIN: No ulcer, rash, bleeding. JOINTS: No active deforming arthropathy. LYMPHATICS: No lymph node palpable in neck, axillae or groin. LABS: WBC 12.3. ASSESSMENT: 1. Status post laparoscopic repair of paraesophageal hiatal hernia with mesh. 2. Hypertension. 3. History of chronic liver disease. 4. History of pneumonia. 5. History of cerebrovascular accident, transient ischemic attack. RECOMMENDATIONS AND DISCUSSION: In this 71-year-old woman who presented with multiple medical issues, I recommend to continue the current medications, DVT prophylaxis, incentive spirometry. Resume the home medications. Labs are reviewed. Recommend close followup with Dr. Pedraza after discharge. MMODL / IJN: [id number] / MTDKaren
[2021-04-15 16:03] VITALS: PULSE 90
[2021-04-15] MEDS ORDERED: LATANOPROST 0.005% OPHTH DROPS 2.5 ML BTL BOTH EYES SCH (21:00)
[2021-04-15] MEDS ORDERED: VENLAFAXINE HCL 75 MG TAB PO SCH (21:00)
[2021-04-16] MEDS ORDERED: LOSARTAN 25 MG TAB PO SCH (09:00)
[2021-04-16] MEDS ORDERED: FLUTICASONE 50MCG/SPRAY NASAL 16GM EA NOSTRIL SCH (09:00)
== END 2021-04-15 16:05 | disposition home or self-care (01) ==
LOC: OR 12:11 → 5NMEDONC 15:36 → OR 04-15 12:24 → 5NMEDONC 04-15 12:24
PROVIDERS: ADMIT Surgery; ATTEND Surgery
DX: K44.9 Diaphragmatic hernia without obstruction or gangrene (principal); K21.9 Gastro-esophageal reflux disease without esophagitis; Z20.822 Contact with and (suspected) exposure to COVID-19; I10 Essential (primary) hypertension; R13.10 Dysphagia, unspecified; D72.829 Elevated white blood cell count, unspecified; K76.9 Liver disease, unspecified; L80 Vitiligo; M19.90 Unspecified osteoarthritis, unspecified site; H40.9 Unspecified glaucoma; M54.9 Dorsalgia, unspecified; M54.2 Cervicalgia; F41.9 Anxiety disorder, unspecified; F32.A Depression, unspecified; G25.81 Restless legs syndrome; H91.90 Unspecified hearing loss, unspecified ear; K74.5 Biliary cirrhosis, unspecified; J30.89 Other allergic rhinitis; Z79.899 Other long term (current) drug therapy; Z91.048 Other nonmedicinal substance allergy status; Z90.710 Acquired absence of both cervix and uterus; Z86.73 Personal history of transient ischemic attack (TIA), and cerebral infarction without residual deficits; Z90.49 Acquired absence of other specified parts of digestive tract; Z86.16 Personal history of COVID-19; Z87.01 Personal history of pneumonia (recurrent); Z87.19 Personal history of other diseases of the digestive system; Z97.4 Presence of external hearing-aid
CPT/HCPCS: 43282; 94640; 86900; 86901; 80048; 85025; 86850; 87635; 74210; G0378; C1781; J2250; J1100; J2710; J0690 ×2; J2405; J2001; J3010; J1650; J1170 ×3; J0330; J2704; Q9967; J1644

== ENCOUNTER → 2021-10-11 | Outpatient (CLI) | payer MEDICARE ==
--- NOTE | 2021-10-11 13:56 | US ---
EXAMINATION TYPE: US liver DATE OF EXAM: 10/11/2021 COMPARISON: CT abdomen pelvis 03/12/2021, liver ultrasound 03/10/2020. CLINICAL HISTORY: K74.60 CIRRHOSIS OF LIVER. Cirrhosis TECHNIQUE: Multiple sonographic images of the right upper quadrant are obtained. FINDINGS: EXAM MEASUREMENTS: Liver Length: 15.6 cm Gallbladder Wall: Surgically absent cm CBD: .4 cm Right Kidney: 10.7 x 4.5 x 4.8 cm SERVICE MANAGER NOTES: Limited examination due to patient's body habitus and overlying bowel gas. Pancreas: Tail obscured by overlying bowel gas Liver: Increased attenuation. No gross evidence of focal lesion within limitations of exam. No defin itive surface nodularity. Gallbladder: Surgically absent CBD: wnl Right Kidney: No hydronephrosis or masses seen . No shadowing calculi. IMPRESSION: * Limited examination due to patient's body habitus and overlying bowel gas. * Visualized portions of the liver show an echogenic appearance suggesting hepatic steatosis.
== END | disposition home or self-care (01) ==
LOC: RADUSWWP 08:47
PROVIDERS: ATTEND Internal Medicine Gastroenterology
DX: K74.60 Unspecified cirrhosis of liver (principal)
CPT/HCPCS: 76705

== ENCOUNTER → 2022-01-18 | Outpatient (CLI) | payer MEDICARE ==
--- NOTE | 2022-01-18 14:12 | XR ---
EXAMINATION TYPE: XR chest 2V DATE OF EXAM: 01/18/2022 2:02 PM COMPARISON: Chest radiographs from 03/09/2021 TECHNIQUE: XR chest 2V Frontal and lateral views of the chest. CLINICAL INDICATION:Female, 71 years old with history of R059 COUGH; FINDINGS: Lungs/Pleura: There is flattening of the diaphragm with increased lucency of the lungs. No evidence o f pneumothorax, pleural effusion or focal consolidation. Pulmonary vascularity: Unremarkable. Heart/mediastinum: Cardiomediastinal silhouette is unremarkable. Musculoskeletal: Multiple level degenerative disc disease changes seen throughout the spine. Increase d thoracic kyphosis. Partial visualization of lumbar fixation hardware. Bilateral shoulder arthropath y. Other: Cholecystectomy clips in the right quadrant. IMPRESSION: 1. No acute cardiopulmonary disease process. 2. COPD changes.
== END | disposition home or self-care (01) ==
LOC: RADXRYALE 13:50
PROVIDERS: ATTEND Internal Medicine
DX: J44.9 Chronic obstructive pulmonary disease, unspecified (principal); R05.9 Cough, unspecified
CPT/HCPCS: 71046

== ENCOUNTER → 2022-02-02 | Outpatient (CLI) | payer MEDICARE ==
[2022-02-02 10:37] LABS: African American GFR (CKD) >90 (>60 ml/min/1.73 sqM); Blood Urea Nitrogen 16 mg/dL (7-17); Non-African American GFR(CKD) 82 (>60 ml/min/1.73 sqM)
--- NOTE | 2022-02-02 11:14 | CT ---
EXAMINATION TYPE: CT chest w con DATE OF EXAM: 02/02/2022 COMPARISON: 03/09/2021 HISTORY: COPD. CT DLP: 340.3 mGycm Automated exposure control for dose reduction was used. TECHNIQUE: CT scan of the chest is performed with IV Contrast, patient injected with 70ml mL of Isovue 300. MIP Images are created on CT scanner and reviewed. 3D reconstructed images are created on an independent workstation and reviewed. FINDINGS: LUNGS: The lungs are grossly clear, there is no concerning consolidation identified. There is no pl eural effusion or pneumothorax seen. The tracheobronchial tree is patent. There is a 4 mm nodule in the right lower lobe axial image 35 and in the right upper lobe axial image 32. The lower lobe nodule is stable from prior exam. Additional 2 mm nodule axial image 36 left lower lobe was present on prio r exam. There is been interval near-complete resolution of bilateral lower lobe areas of infiltrate. Residual density likely represents chronic atelectasis in the lower lobes or scarring. Mild underlyin g COPD.. MEDIASTINUM: There are no greater than 1 cm hilar or mediastinal lymph nodes. No pericardial effusi on is seen. Atherosclerotic change of the aorta with no evidence of aneurysm. No significant coronar y artery calcification. Heart size normal. OTHER: Postcholecystectomy changes are seen. There is a hiatal hernia. Hypertrophic and degenerative changes of the spine arthropathy of the shoulders. Correlate for scoliosis. IMPRESSION: 1. Interval resolution of bilateral lower lobe infiltrates with residual density likely representing chronic scarring or atelectasis. 2. Sub-5 mm pulmonary nodules too small to characterize. See above. 6 month follow-up CT recommended to confirm stability. 3. Stable mild COPD. 4. Hiatal hernia.
== END | disposition home or self-care (01) ==
LOC: RADCTMAIN 09:55
PROVIDERS: ATTEND Internal Medicine
DX: J44.9 Chronic obstructive pulmonary disease, unspecified (principal); K44.9 Diaphragmatic hernia without obstruction or gangrene
CPT/HCPCS: 82565; 84520; 71260; 36415; Q9967

== ENCOUNTER → 2022-08-22 | Outpatient (CLI) | payer MEDICARE ==
[2022-08-22 12:17] LABS: INR 0.9 (<1.2)
[2022-08-22 16:31] LABS: HCT 38.1 % (37.2-46.3); HGB 11.6 d/dL (12.0-15.0); MCH 27.8 pg (27.0-32.0); MCHC 30.4 d/dL (32.0-37.0); MCV 91.4 FL (80.0-97.0); Mean Platelet Volume 9.9 FL (9.5-12.2); NRBC Per 100 WBC 0 X 10*3/uL (0.00-0.01); Platelet Count 352 X 10*3/uL (140-440); RBC 4.17 X 10*6/uL (4.10-5.20); RDW 14.3 % (11.5-14.5); WBC 6.92 X 10*3/uL (4.50-10.00)
[2022-08-22 17:04] LABS: ALT 37 U/L (8-44); AST 31 U/L (13-35); Albumin 3.9 d/dL (3.8-4.9); Alkaline Phosphatase 156 U/L (41-126); BUN/Creat Ratio 23.25 Ratio (12.00-20.00); Blood Urea Nitrogen 18.6 mg/dL (9.0-27.0); Calcium 10.5 mg/dL (8.7-10.3); Carbon Dioxide 25.7 mmol/L (21.6-31.8); Chloride 104 mmol/L (96-109); Globulin 2.6 d/dL (1.6-3.3); Glucose 98 mg/dL (70-110); Potassium 4.7 mmol/L (3.5-5.5); Sodium 141 mmol/L (135-145); Total Bilirubin 0.3 mg/dL (0.3-1.2); Total Protein 6.5 d/dL (6.2-8.2)
== END | disposition home or self-care (01) ==
LOC: LABWHC1 10:28
PROVIDERS: ATTEND Nurse Practitioner Family
DX: K74.60 Unspecified cirrhosis of liver (principal)
CPT/HCPCS: 36415; 80053; 82105; 85027; 85610

== ENCOUNTER → 2022-08-22 | Outpatient (CLI) | payer MEDICARE ==
--- NOTE | 2022-08-22 11:20 | US ---
EXAMINATION TYPE: US liver DATE OF EXAM: 08/22/2022 COMPARISON: Liver ultrasound most recent 10/11/2021 CLINICAL INDICATION: Female, 72 years old with history of K74.60 CIRRHOSIS OF LIVER; cirrhosis no gal lbladder. Exam limitations due to body habitus and bowel gas. TECHNIQUE: Multiple sonographic images of the right upper quadrant are obtained. FINDINGS: EXAM MEASUREMENTS: Liver Length: 16 cm Gallbladder Wall: Surgically absent CBD: 0.5 cm Right Kidney: 10.5 x 4.5 x 4.8 cm OPERATIONS MANAGEMENT TRAINEE NOTES: Pancreas: Obscured by bowel gas Liver: Increased attenuation with subtle nodular contour suggested. Gallbladder: Surgically absent Evidence for sonographic Mulligan's sign: No CBD: wnl Right Kidney: Anechoic area mid pole 3.3 x 2.0 x 3.0 cm. IMPRESSION: Hepatic steatosis with superimposed cirrhosis. No suspicious observations.
== END | disposition home or self-care (01) ==
LOC: RADUSWWP 10:01
PROVIDERS: ATTEND Internal Medicine Gastroenterology
DX: K74.60 Unspecified cirrhosis of liver (principal); K76.0 Fatty (change of) liver, not elsewhere classified
CPT/HCPCS: 76705

== ENCOUNTER → 2022-09-15 | Outpatient (CLI) | payer MEDICARE ==
--- NOTE | 2022-09-15 15:05 | CT ---
EXAMINATION TYPE: CT chest wo con CT DLP: 444.1 mGycm, Automated exposure control for dose reduction was used. DATE OF EXAM: 09/15/2022 2:35 PM COMPARISON: CT chest 02/02/2022, 03/09/2021 CLINICAL INDICATION:Female, 72 years old with history of R91.1 nodule; PHH, H/O COPD AND LUNG NODULE TECHNIQUE: Multiple axial images were obtained through the chest without IV contrast. Lack of IV or o ral contrast limits evaluation of solid and hollow organ viscera. . Coronal and sagittal reformats re viewed. FINDINGS: LUNGS/ PLEURA: No pleural effusion, focal consolidation, or pneumothorax. Bilateral lower lobe subseg mental atelectasis identified. Stable right lower lobe 4 mm pulmonary nodule (series 4, image 32). T here are 2 stable adjacent 2 mm pulmonary nodules within the left lower lobe (series 4, image 34). No new or enlarging pulmonary nodules. Mild underlying COPD. AIRWAY: Patent and unremarkable.. HEART: Size within normal limits. No pericardial effusion. MEDIASTINUM: No gross evidence of adenopathy. VASCULATURE: No aortic aneurysm. Mild atherosclerotic calcification of the aorta and its branches. MUSCULOSKELETAL: Mild disc degeneration changes are present throughout the thoracolumbar spine. No ac myesha osseous abnormality. Scoliotic curvature of the thoracic spine. Degenerative changes of both shou lders. SOFT TISSUES/LYMPH NODES: Unremarkable. LOWER NECK: Multinodular thyroid gland identified.. UPPER ABDOMEN: Postcholecystectomy changes. Postsurgical changes at the GE junction. IMPRESSION: Few stable pulmonary nodules measuring up to 4 mm. No new or enlarging pulmonary nodules.
== END | disposition home or self-care (01) ==
LOC: RADCTMAIN 14:14
PROVIDERS: ATTEND Internal Medicine
DX: R91.8 Other nonspecific abnormal finding of lung field (principal); J44.9 Chronic obstructive pulmonary disease, unspecified
CPT/HCPCS: 71250

== ENCOUNTER → 2023-04-07 | Outpatient (CLI) | payer MEDICARE ==
--- NOTE | 2023-04-07 08:54 | US ---
EXAMINATION TYPE: US liver DATE OF EXAM: 04/07/2023 COMPARISON: 08/22/2022 CLINICAL INDICATION: Female, 73 years old with history of K74.60 cirrhosis of liver; Follow up liver cirrhosis. GB removed. TECHNIQUE: Multiple sonographic images of the right upper quadrant are obtained. FINDINGS: EXAM MEASUREMENTS: Liver Length: 16.8 cm CBD: 0.7 cm Right Kidney: 10.5 c 5.3 x 4.2 cm Pancreas: Tail obscured by overlying bowel gas Liver: Heterogenous Gallbladder: Surgically absent Evidence for sonographic Mulligan's sign: neg CBD: wnl Right Kidney: Medial anechoic area, dilated pelvis vs mild hydronephrosis IMPRESSION: Mild right-sided hydronephrosis difficult to exclude. 2. Hepatic steatosis.
== END | disposition home or self-care (01) ==
LOC: RADUSWWP 08:07
PROVIDERS: ATTEND Internal Medicine Gastroenterology
DX: K74.60 Unspecified cirrhosis of liver (principal); N13.30 Unspecified hydronephrosis; K76.0 Fatty (change of) liver, not elsewhere classified
CPT/HCPCS: 76705

== ENCOUNTER → 2023-04-14 | Outpatient (CLI) | payer MEDICARE ==
--- NOTE | 2023-04-14 17:30 | BD ---
EXAMINATION TYPE: Axial Bone Density DATE OF EXAM: 04/14/2023 CLINICAL HISTORY: 73 years old Female. ICD-10 CODE: N95.8 SPECIFIED MENOPAUSAL AND PERIMENOPAUSAL Height: 4 ft 8 1/2 in Weight: 173 FRAX RISK QUESTIONS: Alcohol (3 or more units per day): no Family History (Parent hip fracture): no Glucocorticoids (More than 3mos): no (Ex: prednisone, prednisolone, methylprednisolone, dexamethasone, and hydrocortisone). History of Fracture in Adulthood: no Secondary Osteoporosis: 1. Type 1 Diabetes: no 2. Hyperthyroidism: no 3. Menopause before 45: no 4. Malnutrition: no 5. Chronic liver disease: yes Rheumatoid Arthritis: no Current Tobacco Use: no RISK FACTORS HISTORY OF: Surgery to Spine/Hip(right/left)/Wrist (right/left): lumbar surg When: 2021 MEDICATIONS: Thyroid Medications: none Osteoporosis Medications:yes Which medication: unsure which med How Lon years EXAM MEASUREMENTS: Bone mineral densitometry was performed using the [employer] System. Bone mineral density about the R hip (g/cm2):0.982 Bone mineral density about the L hip (g/cm2): 0.891 T Score values are as follows: -----R Neck: -0.8 -----L Neck: -1.1 -----R Total: -0.7 -----L Total: -0.7 Z Score values are as follows: -----R Neck: 0.8 -----L Neck: 0.6 -----R Total: 0.7 -----L Total: 0.7 baseline Bone mineral density about the L Wrist (g/cm2): 0.552 T Score values are as follows: -----Dist. R+U: -1.0 -----Prox. R+U: -1.8 -----Radius total: -2.0 Z Score values are as follows: -----Dist. R+U: 1.3 -----Prox. R+U: 0.5 -----Radius total: 0.2 baseline FRAX%s: The graph provided illustrates a 8.8 % chance for a major osteoporotic fx and a 1.3 % chance for the hips probability for fx in 10 years time. IMPRESSION: Osteopenia (T Score between -2.5 and -1). There is slightly increased risk of fracture and the patient may be considered for treatment. Re-Screen 2-5 years. NOTE: T-SCORE=SD OF THE YOUNG ADULT MEAN.
--- NOTE | 2023-04-17 19:36 | MM ---
Reason for Exam: Screening (asymptomatic). Last mammogram was performed 2 year(s) and 7 month(s) ago. Patient History: Menarche at age 10. First Full-Term at age 18. Left ovary removed at age 34. Right ovary removed at age 34. Hysterectomy at age 34. Postmenopausal. Patient has history of breast feeding. Estrogen for 20 years from age 34 until age 54. 1985, Benign Excisional Biopsy on the right side. 10/24/2016, Benign Core Biopsy on the left side. 10/07/2016, High risk Core Biopsy on the left side. Maternal aunt had breast cancer, age 53. Mother had breast cancer, age 82. Risk Values: Paulette 5 year model risk: 5.0%. NCI Lifetime model risk: 10.6%. Prior Study Comparison: 11/28/2017 Bilateral Screening Mammogram, [facility]. 03/04/2019 Bilateral Screening Mammogram, [facility]. 08/28/2020 Bilateral Screening Mammogram, [facility]. Tissue Density: There are scattered fibroglandular densities. Findings: Analyzed By CAD. Microclip left breast from prior biopsy. On the right MLO view, asymmetric density along the retroareolar plane anterior depth has become more defined. This may represent superimposition shadow but further evaluation is recommended. Overall Assessment: Incomplete: need additional imaging evaluation, BI-RAD 0 Management: Special View Mammogram of the right breast. Diagnostic Breast Ultrasound of the right breast. Additional views to include spot 3-D MLO and 3-D lateral views. Subsequent right breast ultrasound.. [facility] will attempt to contact patient to return for supplemental views and ultrasound if indicated. Electronically signed and approved by: Dieudonne Stewart M.D. Radiologist
== END | disposition home or self-care (01) ==
LOC: RADMAMWWP 11:13
PROVIDERS: ATTEND Internal Medicine
DX: Z12.31 Encounter for screening mammogram for malignant neoplasm of breast (principal); N95.8 Other specified menopausal and perimenopausal disorders; M85.89 Other specified disorders of bone density and structure, multiple sites
CPT/HCPCS: 77063; 77067; 77080

== ENCOUNTER → 2023-04-27 | Outpatient (CLI) | payer MEDICARE ==
--- NOTE | 2023-04-27 14:30 | MM ---
Reason for Exam: Additional evaluation requested from abnormal screening. Last screening mammogram was performed less than 1 month ago. Patient History: Menarche at age 10. First Full-Term at age 18. Left ovary removed at age 34. Right ovary removed at age 34. Hysterectomy at age 34. Postmenopausal. Patient has history of breast feeding. Estrogen for 20 years from age 34 until age 54. 1985, Benign Excisional Biopsy on the right side. 10/24/2016, Benign Core Biopsy on the left side. 10/07/2016, High risk Core Biopsy on the left side. Maternal aunt had breast cancer, age 53. Mother had breast cancer, age 82. Risk Values: Paulette 5 year model risk: 5.0%. NCI Lifetime model risk: 10.6%. Tissue Density: Right: There are scattered fibroglandular densities. Findings: Analyzed By CAD. Inferior asymmetric density right breast disperses on additional views compatible with superimposition shadow. Overall Assessment: Benign, BI-RAD 2 Management: Screening Mammogram of both breasts in 1 year. See note below in regards to patient's increased 5 year Paulette score. Results were given to the patient verbally at the time of exam. Patient should continue monthly self-breast exams. A clinical breast exam by your physician is recommended on an annual basis. This exam should not preclude additional follow-up of suspicious palpable abnormalities. Note on Paulette scores and lifetime risk: 1. A Paulette score greater than 3% is considered moderate risk. If this is the case, consider specialist referral to assess eligibility for a risk reducing agent. 2. If overall lifetime risk for the development of breast cancer is 20% or higher, the patient may qualify for future screening with alternating mammogram and breast MRI. Electronically signed and approved by: Dieudonne Stewart M.D. Radiologist
== END | disposition home or self-care (01) ==
LOC: RADMAMWWP 14:04
PROVIDERS: ATTEND Internal Medicine
DX: R92.321 Mammographic fibroglandular density, right breast (principal); Z78.0 Asymptomatic menopausal state; Z80.3 Family history of malignant neoplasm of breast
CPT/HCPCS: 77061; 77065

== ENCOUNTER → 2023-10-11 | Outpatient (CLI) | payer MEDICARE | END | disposition home or self-care (01) | LOC: LABPRL 14:14 | PROVIDERS: ATTEND Psychiatry & Neurology Neurology | DX: G25.81 Restless legs syndrome (principal); G62.9 Polyneuropathy, unspecified; R41.3 Other amnesia | CPT/HCPCS: 82306; 82607; 82746; 83036 ==

== ENCOUNTER → 2023-11-29 | Outpatient (CLI) | payer MEDICARE ==
--- NOTE | 2023-11-29 13:34 | US ---
EXAMINATION TYPE: US liver DATE OF EXAM: 11/29/2023 COMPARISON: 04/07/2023 CLINICAL INDICATION: Female, 73 years old with history of K74.60 UNSPECIFIED CIRRHOSIS OF LIVER; GB r emoved. Cirrhosis. TECHNIQUE: Grayscale and color Doppler imaging of the right upper quadrant was performed. FINDINGS: EXAM MEASUREMENTS: Liver Length: 14.5 cm CBD: 0.8 cm Right Kidney: 9.7 x 4.3 x 4.4 cm Pancreas: Tail obscured by overlying bowel gas, echogenic in appearance Liver: Heterogenous and coarse Gallbladder: Surgically absent Evidence for sonographic Mulligan's sign: neg CBD: wnl Right Kidney: Medial anechoic lesion at hilum, dilated renal pelvis vs mild hydronephrosis IMPRESSION: Similar mild right hydronephrosis to 04/07/2023, otherwise no acute process.. [facility], , 11/29/2023 1:32 PM
[2023-11-29 19:41] LABS: HCT 40.6 % (37.2-46.3); HGB 12.6 g/dL (12.0-15.0); MCH 27.9 pg (27.0-32.0); MCV 89.8 FL (80.0-97.0); Mean Platelet Volume 10.3 FL (9.5-12.2); NRBC Per 100 WBC 0 X 10*3/uL (0.00-0.01); Platelet Count 326 X 10*3/uL (140-440); RBC 4.52 X 10*6/uL (4.10-5.20); RDW 14.6 % (11.5-14.5); WBC 5.51 X 10*3/uL (4.50-10.00)
[2023-11-29 19:51] LABS: INR 0.99 sec (0.93-1.11); Prothrombin Time 10.7 sec (9.9-11.9)
[2023-11-29 22:46] LABS: ALT 27 U/L (8-44); AST 31 U/L (13-35); Albumin 4.2 g/dL (3.8-4.9); Albumin/Globulin Ratio 1.62 Ratio (1.60-3.17); Alkaline Phosphatase 168 U/L (41-126); BUN/Creat Ratio 28.57 Ratio (12.00-20.00); Calcium 9.6 mg/dL (8.7-10.3); Carbon Dioxide 26.5 mmol/L (21.6-31.8); Chloride 103 mmol/L (96-109); Globulin 2.6 g/dL (1.6-3.3); Glucose 109 mg/dL (70-110); Potassium 4.4 mmol/L (3.5-5.5); Sodium 141 mmol/L (135-145); Total Bilirubin 0.4 mg/dL (0.3-1.2); Total Protein 6.8 g/dL (6.2-8.2)
== END | disposition home or self-care (01) ==
LOC: RADUSWWP 12:25
PROVIDERS: ATTEND Internal Medicine Gastroenterology
DX: K74.60 Unspecified cirrhosis of liver
CPT/HCPCS: 76705; 80053; 82105; 85027; 85610

== ENCOUNTER 2024-01-03 16:35 | Emergency (ER) | payer MEDICARE ==
[2024-01-03 16:48] VITALS: RESP 18
--- NOTE | 2024-01-03 17:24 | ED ---
General Adult HPI - General Chief complaint: Fall Stated complaint: fall, head injury Time Seen by Provider: 01/03/24 16:56 Source: patient, RN notes reviewed Mode of arrival: wheelchair Limitations: no limitations - History of Present Illness Initial comments: 73-year-old female presents to the emergency department for evaluation of fall with head injury. Patient states that she was carrying a package when she tripped on the sidewalk causing her to fall. She fell forward hitting her head and nose on the cement. She denies loss of consciousness, blood thinners. She denies any preceding symptoms including dizziness, chest pain, shortness of breath. Patient is reporting pain to her face, her right knee and her left leg. - Related Data Home Medications Medication Instructions Recorded Confirmed Latanoprost Ophth [Xalatan 0.005%] 1 drop BOTH EYES HS 03/19/14 10/21/22 Dicyclomine [Bentyl] 10 mg PO ACHS PRN 10/20/16 10/21/22 Alendronate Sodium 70 mg PO WEEKLY 03/08/21 10/21/22 Losartan Potassium [Cozaar] 25 mg PO HS 03/08/21 10/21/22 Venlafaxine HCl [Effexor] 75 mg PO HS 03/08/21 10/21/22 Calcium (Unknown Dose) 2 tab PO DAILY 04/09/21 10/21/22 Ibuprofen 200 - 400 mg PO DIRECTED PRN 04/09/21 10/21/22 Vit C/E/Zn/Coppr/Lutein/Zeaxan 2 each PO DAILY 04/09/21 10/21/22 [Preservision Areds 2 Softgel] Aspirin [Adult Low Dose Aspirin EC] 81 mg PO DAILY 10/20/22 10/21/22 DULoxetine HCL [Cymbalta] 30 mg PO BID 10/20/22 10/21/22 Fluticasone/Umeclidin/Vilanter 1 puff INHALATION HS 10/20/22 10/21/22 [Trelegy Ellipta 200-62.5-25] Montelukast [Singulair] 10 mg PO DAILY 10/20/22 10/21/22 Pantoprazole [Protonix] 40 mg PO DAILY 10/20/22 10/21/22 Pimecrolimus 1 applic TOPICAL DIRECTED 10/20/22 10/21/22 Vitamin B Complex 1 each PO DAILY 10/20/22 10/21/22 rOPINIRole HCL [Requip] 1 mg PO HS 10/20/22 10/21/22 ursodioL [Ursodiol] 500 mg PO BID 10/20/22 10/21/22 Allergies Allergy/AdvReac Type Severity Reaction Status Date / Time adhesive Allergy Rash/Hives Verified 01/03/24 16:44 mold Allergy CONGESTION Verified 01/03/24 16:44 pollen extracts Allergy CONGESTION Verified 01/03/24 16:44 Sulfa (Sulfonamide Allergy Rash/Hives Verified 01/03/24 16:44 Antibiotics) acetaminophen [From Tylenol] AdvReac Unknown states no Verified 01/03/24 16:44 Tylenol due to Liver disease. gabapentin AdvReac Unknown Rash/Hives Verified 01/03/24 16:44 Review of Systems ROS Statement: Those systems with pertinent positive or pertinent negative responses have been documented in the HPI. ROS Other: All systems not noted in ROS Statement are negative. Past Medical History Past Medical History: COPD, CVA/TIA, Eye Disorder, GERD/Reflux, Hearing Disorder / Deafness, Hypertension, Liver Disease, Osteoarthritis (OA), Respiratory Disorder, Seizure Disorder, Skin Disorder Additional Past Medical History / Comment(s): CVA 2009,MILD MEMORY CHANGES. AUTOIMMUNE DISORDER - BILIARY CIRRHOSIS, VITILIGO. GLAUCOMA. CHRONIC BRONCHITIS., STATES HX OF SEIZURE X2 "YEARS AGO" ., HEARING AIDS., STATES "CONSTANT COUGH" History of Any Multi-Drug Resistant Organisms: None Reported Past Surgical History: Back Surgery, Bladder Surgery, Cholecystectomy, Hernia Repair, Hysterectomy, Joint Replacement, Tonsillectomy Additional Past Surgical History / Comment(s): Cyst removed from Lt Breast. Hemorrhoidectmy. Calos TOTAL Knees , lower back surgery with rods/screws Past Anesthesia/Blood Transfusion Reactions: No Reported Reaction Past Psychological History: Depression Smoking Status: Former smoker Past Alcohol Use History: None Reported Past Drug Use History: None Reported - Past Family History Father Family Medical History: No Reported History Mother Family Medical History: Cancer Additional Family Medical History / Comment(s): breast cancer General Exam Limitations: no limitations General appearance: alert, in no apparent distress Head exam: Present: other (Forehead hematoma, ecchymosis to the nasal bridge). Absent: atraumatic Eye exam: Present: normal appearance, PERRL, EOMI. Absent: scleral icterus, conjunctival injection, periorbital swelling ENT exam: Present: normal exam, normal oropharynx, mucous membranes moist, TM's normal bilaterally, normal external ear exam Neck exam: Present: normal inspection. Absent: tenderness, meningismus, lymphadenopathy Respiratory exam: Present: normal lung sounds bilaterally. Absent: respiratory distress, wheezes, rales, rhonchi, stridor Cardiovascular Exam: Present: regular rate, normal rhythm, normal heart sounds. Absent: systolic murmur, diastolic murmur, rubs, gallop, clicks GI/Abdominal exam: Present: soft, normal bowel sounds. Absent: distended, tenderness, guarding, rebound, rigid Extremities exam: Present: full ROM, tenderness (Right knee, left mid tib-fib), normal capillary refill. Absent: pedal edema, joint swelling, calf tenderness Back exam: Present: normal inspection Neurological exam: Present: alert, oriented X3, CN II-XII intact Psychiatric exam: Present: normal affect, normal mood Skin exam: Present: warm, dry, normal color, abrasion (Forehead abrasion). Absent: intact, rash Course Vital Signs 01/03/24 01/03/24 01/03/24 16:44 18:48 19:17 Temperature 97.6 F 98.1 F 98 F Pulse Rate 65 63 64 Respiratory 18 18 18 Rate Blood Pressure 152/89 148/84 142/86 O2 Sat by Pulse 98 98 98 Oximetry Medical Decision Making - Medical Decision Making Was pt. sent in by a medical professional or institution (, PA, BRUSH OPERATOR, urgent care, hospital, or fci...) When possible be specific @ -No Did you speak to anyone other than the patient for history (EMS, parent, family, police, friend...)? What history was obtained from this source @ -No Did you review nursing and triage notes (agree or disagree)? Why? @ -I reviewed and agree with nursing and triage notes Were old charts reviewed (outside hosp., previous admission, EMS record, old EKG, old radiological studies, urgent care reports/EKG's, fci records)? Report findings @ -No old charts were reviewed Differential Diagnosis (chest pain, altered mental status, abdominal pain women, abdominal pain men, vaginal bleeding, weakness, fever, dyspnea, syncope, headache, dizziness, GI bleed, back pain, seizure, CVA, palpatations, mental health, musculoskeletal)? @ -Fall, head injury, scalp contusion, nasal bone fracture, this is not all inclusive EKG interpreted by me (3pts min.). @ -none X-rays interpreted by me (1pt min.). @ -X-ray of the right knee shows no acute process X-ray of the left tib-fib shows no acute process CT interpreted by me (1pt min.). @ -CT brain shows no acute intracranial process, subtle changes of left nasal bone U/S interpreted by me (1pt. min.). @ -None done What testing was considered but not performed or refused? (CT, X-rays, U/S, labs)? Why? @ -None What meds were considered but not given or refused? Why? @ -None Did you discuss the management of the patient with other professionals (professionals i.e. , PA, BRUSH OPERATOR, lab, RT, psych nurse, social media intern, steam fitter supervisor, teacher, parking regulation enforcement officer, embedded case manager)? Give summary @ -No Was smoking cessation discussed for >3mins.? @ -No Was critical care preformed (if so, how long)? @ -No Were there social determinants of health that impacted care today? How? (Homelessness, low income, unemployed, alcoholism, drug addiction, transportation, low edu. Level, literacy, decrease access to med. care, shelter, rehab)? @ -No Was there de-escalation of care discussed even if they declined (Discuss DNR or withdrawal of care, Hospice)? DNR status @ -No What co-morbidities impacted this encounter? (DM, HTN, Smoking, COPD, CAD, Cancer, CVA, ARF, Chemo, Hep., AIDS, mental health diagnosis, sleep apnea, morbid obesity)? @ -None Was patient admitted / discharged? Hospital course, mention meds given and route, prescriptions, significant lab abnormalities, going to OR and other pertinent info. @ -Discharge. Patient presented to the emergency department for evaluation of a fall. Patient tripped and fell hitting her face on the ground. She is not on thinners did not lose consciousness. CT brain was obtained revealing no acute process. CT of the facial bones showed small deformity of the left nasal bones. X-ray of the right knee and the left tib-fib showed no evidence of acute fracture or dislocation. Patient was provided medication for analgesia while in the emergency department. She was able to ambulate. Patient will be discharged home. She is understanding agreeable with plan. Patient stable at time of discharge. Case discussed with Dr. Ibrahim. Undiagnosed new problem with uncertain prognosis? @ -No Drug Therapy requiring intensive monitoring for toxicity (Heparin, Nitro, Insulin, Cardizem)? @ -No Were any procedures done? @ -No Diagnosis/symptom? @ -Fall, head injury Acute, or Chronic, or Acute on Chronic? @ -Acute Uncomplicated (without systemic symptoms) or Complicated (systemic symptoms)? @ -uncomplicated Side effects of treatment? @ -No Exacerbation, Progression, or Severe Exacerbation? @ -No Poses a threat to life or bodily function? How? (Chest pain, USA, NV, pneumonia, PE, COPD, DKA, ARF, appy, cholecystitis, CVA, Diverticulitis, Homicidal, Suicidal, threat to staff... and all critical care pts) @ -No Disposition Clinical Impression: Fall, Head injury, Nasal bone fracture Disposition: HOME SELF-CARE Condition: Stable Instructions (If sedation given, give patient instructions): Fall Prevention (ED) Additional Instructions: Please follow up with your primary care provider. Return to the emergency department for new or worsening symptoms. Is patient prescribed a controlled substance at d/c from ED?: No Referrals: Annette Pedraza MD [Primary Care Provider] - 1-2 days
--- NOTE | 2024-01-03 18:32 | CT ---
EXAMINATION TYPE: CT brain cspine wo con, CT facial bones wo con DATE OF EXAM: 01/03/2024 6:08 PM COMPARISON: None. CLINICAL INDICATION: Female, 73 years old with history of pain TECHNIQUE: Brain: Multiple axial CT images of the brain were obtained without IV contrast. Cspine: Axial CT images from the skull base to the inferior aspect of T2 we obtained without intraven ous contrast. Coronal and sagittal reformatted images were also reviewed. Facial: Axial imaging of the facial structures with sagittal and coronal reformats. CT DLP: 963 mGycm, Automated exposure control for dose reduction was used. FINDINGS: Brain: Extra-axial spaces: No abnormal extra-axial fluid collections. Ventricular system: Within normal limits Cerebral parenchyma: No acute intraparenchymal hemorrhage or mass effect. The iverson-white junction is well differentiated. Cerebellum: Unremarkable. Mass effect: No evidence of midline shift. Intracranial vasculature: unremarkable Soft tissues: Soft tissue edema over the for head. Calvarium/osseous structures: No depressed skull fracture. Paranasal sinuses and mastoid air cells: Clear. Visualized orbits: Elongated globes bilaterally. Cervical spine: Fracture: None. Osseous structures: Unremarkable Vertebral alignment: Within normal limits. Spinal canal/Neural Foramina: No evidence of significant spinal canal narrowing. No evidence for sign ificant neural foraminal stenosis. Neck soft tissues: Prevertebral soft tissues are within normal limits. Atherosclerosis of the carotid bifurcations. Other: The airway is patent. The lung apices are clear. Facial: There is a slight deformity to left nasal bone. The right. No additional evidence of fracture , subluxation, dislocation,. Mild soft tissue swelling over the nasal bone. Mild soft tissue swelling over the forehead. The orbital contents are unremarkable.The temporal-mandibular joints appear symme tric with elongation of the globes bilaterally.. The visualized portion of the paranasal sinuses appe ar clear. IMPRESSION: 1. No acute intracranial process. 2. Soft tissue edema over the for head without evidence of fracture. 3. Small deformity to the left nasal bone correlate with pain for fracture. 4. No evidence of cervical spine fracture. 5. Mild multilevel degenerative disc disease. 6. Bilateral globe Staphylomas [facility], , 01/03/2024 6:29 PM
--- NOTE | 2024-01-03 18:33 | XR ---
EXAMINATION TYPE: XR tibia fibula LT DATE OF EXAM: 01/03/2024 6:08 PM COMPARISON: None CLINICAL INDICATION: Female, 73 years old with history of pain TECHNIQUE: XR tibia fibula LT; examined in AP and lateral projections. FINDINGS: No evidence of any acute osseous pathology, joint dislocation, or soft tissue swelling is n oted. Total knee arthroplasty changes are intact. IMPRESSION: No evidence of acute fracture. [facility], , 01/03/2024 6:30 PM
--- NOTE | 2024-01-03 18:34 | XR ---
EXAMINATION TYPE: XR knee complete RT DATE OF EXAM: 01/03/2024 6:08 PM COMPARISON: None CLINICAL INDICATION: Female, 73 years old with history of pain TECHNIQUE: XR knee complete RT frontal lateral and oblique views submitted FINDINGS: No evidence of any acute osseous pathology, soft tissue swelling, or joint effusion is no cherise. IMPRESSION: Total knee arthroplasty changes without evidence for fracture. [facility], , 01/03/2024 6:32 PM
[2024-01-03] MEDS: KETOROLAC 15 MG/ML 1 ML VIAL IM STA (19:14)
[2024-01-03 19:18] VITALS: BP 142/86; PULSE 64; TEMP 98
== END 2024-01-03 19:17 | disposition home or self-care (01) ==
LOC: EC 16:35
DX: S02.2XXA Fracture of nasal bones, initial encounter for closed fracture (principal); Z87.891 Personal history of nicotine dependence; Z88.1 Allergy status to other antibiotic agents; Z88.2 Allergy status to sulfonamides; Z88.6 Allergy status to analgesic agent; Z88.8 Allergy status to other drugs, medicaments and biological substances; Z86.73 Personal history of transient ischemic attack (TIA), and cerebral infarction without residual deficits; Z90.49 Acquired absence of other specified parts of digestive tract; W01.0XXA Fall on same level from slipping, tripping and stumbling without subsequent striking against object, initial encounter; Y92.480 Sidewalk as the place of occurrence of the external cause
CPT/HCPCS: 73590; 73562; 72125; 70486; 70450; 99284; 96372; J1885

== ENCOUNTER → 2024-08-06 | Outpatient (CLI) | payer MEDICARE ==
--- NOTE | 2024-08-06 09:25 | US ---
EXAMINATION TYPE: US liver DATE OF EXAM: 08/06/2024 COMPARISON: Multiple Ultrasound liver with most recent 11/29/2023 CLINICAL INDICATION: Female, 74 years old with history of [id number] UNSPECIFIED CIRRHOSIS OF LIVER; F/u TECHNIQUE: Grayscale and color Doppler imaging of the right upper quadrant. FINDINGS: EXAM MEASUREMENTS: Liver Length: 16.0cm Gallbladder Wall: Surgically absent CBD: 0.6cm color Doppler imaging was utilized to isolate the common bile duct for measurement. Right Kidney: 11.1x4.2x4.9cm METAL SPRAYER NOTES: limited visualization due to pt body habitus & overlying gas/bowel Pancreas: Tail obscured by overlying bowel gas Liver: Increased attenuation, decreased visualization of vessels suggestive of fatty infiltrate, cir rhotic contour Gallbladder: Surgically absent CBD: wnl Right Kidney: ?dilated renal pelvis vs other The visualized portions of the pancreas unremarkable. Liver demonstrates surface nodularity with incr eased echogenicity. No focal lesion identified. Surgically absent gallbladder. Common bile duct is wi thin normal limits. Similar dilated right renal pelvis. No shadowing calculus identified. No distinct ascites identified within the right upper quadrant. IMPRESSION: Limited examination due to patient's body habitus and overlying bowel gas. 1. Hepatic cirrhosis redemonstrated without evidence for focal lesion. 2. Dilated right renal pelvis redemonstrated. 3. Post cholecystectomy changes. [facility], , 08/06/2024 9:22 AM
[2024-08-06 15:11] LABS: HCT 41.5 % (37.2-46.3); HGB 13.3 g/dL (12.0-15.0); MCH 30.3 pg (27.0-32.0); MCV 94.5 FL (80.0-97.0); Mean Platelet Volume 10.3 FL (9.5-12.2); NRBC Per 100 WBC 0 X 10*3/uL (0.00-0.01); Platelet Count 291 X 10*3/uL (140-440); RBC 4.39 X 10*6/uL (4.10-5.20); RDW 13.3 % (11.5-14.5); WBC 6.06 X 10*3/uL (4.50-10.00)
[2024-08-06 15:27] LABS: INR 0.95 sec (0.93-1.11); Prothrombin Time 10.7 sec (9.9-11.9)
[2024-08-06 16:11] LABS: ALT 28 U/L (8-44); AST 31 U/L (13-35); Albumin/Globulin Ratio 1.38 Ratio (1.60-3.17); Alkaline Phosphatase 157 U/L (41-126); BUN/Creat Ratio 30.83 Ratio (12.00-20.00); Blood Urea Nitrogen 18.5 mg/dL (9.0-27.0); Calcium 9.5 mg/dL (8.7-10.3); Carbon Dioxide 27.7 mmol/L (21.6-31.8); Chloride 102 mmol/L (96-109); Globulin 2.9 g/dL (1.6-3.3); Glucose 105 mg/dL (70-110); Potassium 4.4 mmol/L (3.5-5.5); Sodium 141 mmol/L (135-145); Total Bilirubin 0.5 mg/dL (0.3-1.2); Total Protein 6.9 g/dL (6.2-8.2)
== END | disposition home or self-care (01) ==
LOC: RADUSWWP 08:46
PROVIDERS: ATTEND Internal Medicine Gastroenterology
DX: N28.89 Other specified disorders of kidney and ureter (principal); K74.60 Unspecified cirrhosis of liver; Z90.49 Acquired absence of other specified parts of digestive tract
CPT/HCPCS: 76705; 80053; 82105; 85027; 85610

== ENCOUNTER 2024-09-03 13:53 | Emergency (ER) | payer MEDICARE ==
--- NOTE | 2024-09-03 15:56 | ED ---
General Adult HPI - General Chief complaint: Back Pain/Injury Stated complaint: Back pain Time Seen by Provider: 09/03/24 15:23 Source: patient, family, RN notes reviewed Mode of arrival: ambulatory Limitations: no limitations - History of Present Illness Initial comments: 74-year-old female presents to the emergency department for evaluation of back pain. She notes this has been going on for around 2 weeks. She states that this did start after she was doing some heavy lifting while helping her . She reports that since then things have been getting worse rather than better. She saw her PCP for this and went to the walk-in clinic. She was on steroids recently. She denies any fever, chills, loss of bowel or bladder function. Denies any urinary symptoms. Denies any blood thinners. - Related Data Home Medications Medication Instructions Recorded Confirmed Latanoprost Ophth [Xalatan 0.005%] 1 drop BOTH EYES HS 03/19/14 10/21/22 Dicyclomine [Bentyl] 10 mg PO ACHS PRN 10/20/16 10/21/22 Alendronate Sodium 70 mg PO WEEKLY 03/08/21 10/21/22 Losartan Potassium [Cozaar] 25 mg PO HS 03/08/21 10/21/22 Venlafaxine HCl [Effexor] 75 mg PO HS 03/08/21 10/21/22 Calcium (Unknown Dose) 2 tab PO DAILY 04/09/21 10/21/22 Ibuprofen 200 - 400 mg PO DIRECTED PRN 04/09/21 10/21/22 Vit C/E/Zn/Coppr/Lutein/Zeaxan 2 each PO DAILY 04/09/21 10/21/22 [Preservision Areds 2 Softgel] Aspirin [Adult Low Dose Aspirin EC] 81 mg PO DAILY 10/20/22 10/21/22 DULoxetine HCL [Cymbalta] 30 mg PO BID 10/20/22 10/21/22 Fluticasone/Umeclidin/Vilanter 1 puff INHALATION HS 10/20/22 10/21/22 [Trelegy Ellipta 200-62.5-25] Montelukast [Singulair] 10 mg PO DAILY 10/20/22 10/21/22 Pantoprazole [Protonix] 40 mg PO DAILY 10/20/22 10/21/22 Pimecrolimus 1 applic TOPICAL DIRECTED 10/20/22 10/21/22 Vitamin B Complex 1 each PO DAILY 10/20/22 10/21/22 rOPINIRole HCL [Requip] 1 mg PO HS 10/20/22 10/21/22 ursodioL [Ursodiol] 500 mg PO BID 10/20/22 10/21/22 Previous Rx's Medication Instructions Recorded Lidocaine 5% Patch [Lidoderm 5% 1 patch TOPICAL DAILY #30 patch 09/03/24 Patch] methocarbamoL [Robaxin] 1,000 mg PO TID PRN #18 tab 09/03/24 Allergies Allergy/AdvReac Type Severity Reaction Status Date / Time adhesive Allergy Rash/Hives Verified 01/03/24 16:44 mold Allergy CONGESTION Verified 01/03/24 16:44 pollen extracts Allergy CONGESTION Verified 01/03/24 16:44 Sulfa (Sulfonamide Allergy Rash/Hives Verified 01/03/24 16:44 Antibiotics) acetaminophen [From Tylenol] AdvReac Unknown states no Verified 01/03/24 16:44 Tylenol due to Liver disease. gabapentin AdvReac Unknown Rash/Hives Verified 01/03/24 16:44 Review of Systems ROS Statement: Those systems with pertinent positive or pertinent negative responses have been documented in the HPI. ROS Other: All systems not noted in ROS Statement are negative. Past Medical History Past Medical History: COPD, CVA/TIA, Eye Disorder, GERD/Reflux, Hearing Disorder / Deafness, Hypertension, Liver Disease, Osteoarthritis (OA), Respiratory Disorder, Seizure Disorder, Skin Disorder Additional Past Medical History / Comment(s): CVA 2009,MILD MEMORY CHANGES. AUTOIMMUNE DISORDER - BILIARY CIRRHOSIS, VITILIGO. GLAUCOMA. CHRONIC BRONCHITIS., STATES HX OF SEIZURE X2 "YEARS AGO" ., HEARING AIDS., STATES "CONSTANT COUGH" History of Any Multi-Drug Resistant Organisms: None Reported Past Surgical History: Back Surgery, Bladder Surgery, Cholecystectomy, Hernia Repair, Hysterectomy, Joint Replacement, Tonsillectomy Additional Past Surgical History / Comment(s): Cyst removed from Lt Breast. Hemorrhoidectmy. Calos TOTAL Knees , lower back surgery with rods/screws Past Anesthesia/Blood Transfusion Reactions: No Reported Reaction Past Psychological History: Depression Smoking Status: Former smoker Past Alcohol Use History: None Reported Past Drug Use History: None Reported - Past Family History Father Family Medical History: No Reported History Mother Family Medical History: Cancer Additional Family Medical History / Comment(s): breast cancer General Exam Limitations: no limitations General appearance: alert, in no apparent distress Head exam: Present: atraumatic, normocephalic, normal inspection Eye exam: Present: normal appearance, PERRL, EOMI. Absent: scleral icterus, conjunctival injection, periorbital swelling ENT exam: Present: normal exam, mucous membranes moist Respiratory exam: Present: normal lung sounds bilaterally. Absent: respiratory distress, wheezes, rales, rhonchi, stridor Cardiovascular Exam: Present: regular rate, normal rhythm, normal heart sounds. Absent: systolic murmur, diastolic murmur, rubs, gallop, clicks GI/Abdominal exam: Present: soft. Absent: distended, tenderness, guarding, rebound, rigid Extremities exam: Present: normal inspection, full ROM, normal capillary refill. Absent: tenderness, pedal edema, joint swelling, calf tenderness Back exam: Present: normal inspection Neurological exam: Present: alert, oriented X3 Psychiatric exam: Present: normal affect, normal mood Skin exam: Present: warm, dry, intact, normal color. Absent: rash Course Vital Signs 09/03/24 13:58 Temperature 97.7 F Pulse Rate 72 Respiratory 20 Rate Blood Pressure 153/91 O2 Sat by Pulse 94 L Oximetry Medical Decision Making - Medical Decision Making Was pt. sent in by a medical professional or institution (SHAQUILLE Haro, CASING INSPECTOR, urgent care, hospital, or usp...) When possible be specific @ -[No] Did you speak to anyone other than the patient for history (EMS, parent, family, police, friend...)? What history was obtained from this source @ -[No] Did you review nursing and triage notes (agree or disagree)? Why? @ -[I reviewed and agree with nursing and triage notes] Were old charts reviewed (outside hosp., previous admission, EMS record, old EKG, old radiological studies, urgent care reports/EKG's, usp records)? Report findings @ -[No old charts were reviewed] Differential Diagnosis (chest pain, altered mental status, abdominal pain women, abdominal pain men, vaginal bleeding, weakness, fever, dyspnea, syncope, headache, dizziness, GI bleed, back pain, seizure, CVA, palpatations, mental health, musculoskeletal)? @ -Differential Back Pain: Strain, zoster, cauda equina syndrome, epidural abscess, vertebral osteomyelitis, discitis, fracture, subluxation, disc herniation, DJD, spinal stenosis, dissection, AAA, pancreatitis, peptic ulcer disease, pyelonephritis, kidney stone, this is not meant to be an all-inclusive list. EKG interpreted by me (3pts min.). @ -None X-rays interpreted by me (1pt min.). @ -[None done] CT interpreted by me (1pt min.). @ -[None done] U/S interpreted by me (1pt. min.). @ -[None done] What testing was considered but not performed or refused? (CT, X-rays, U/S, labs)? Why? @ -[None] What meds were considered but not given or refused? Why? @ -[None] Did you discuss the management of the patient with other professionals (professionals i.e. , PA, CASING INSPECTOR, lab, RT, psych nurse, social science research assistant, glue jointer feeder, teacher, landing signal officer, shoe caser)? Give summary @ -[No] Was smoking cessation discussed for >3mins.? @ -[No] Was critical care preformed (if so, how long)? @ -[No] Were there social determinants of health that impacted care today? How? (Homelessness, low income, unemployed, alcoholism, drug addiction, transportation, low edu. Level, literacy, decrease access to med. care, longterm, rehab)? @ -[No] Was there de-escalation of care discussed even if they declined (Discuss DNR or withdrawal of care, Hospice)? DNR status @ -[No] What co-morbidities impacted this encounter? (DM, HTN, Smoking, COPD, CAD, Cancer, CVA, ARF, Chemo, Hep., AIDS, mental health diagnosis, sleep apnea, morbid obesity)? @ -[None] Was patient admitted / discharged? Hospital course, mention meds given and route, prescriptions, significant lab abnormalities, going to OR and other pertinent info. @ -[hospital course] Undiagnosed new problem with uncertain prognosis? @ -[No] Drug Therapy requiring intensive monitoring for toxicity (Heparin, Nitro, Insulin, Cardizem)? @ -[No] Were any procedures done? @ -[No] Diagnosis/symptom? @ -[default] Acute, or Chronic, or Acute on Chronic? @ -[default] Uncomplicated (without systemic symptoms) or Complicated (systemic symptoms)? @ -[default] Side effects of treatment? @ -[No] Exacerbation, Progression, or Severe Exacerbation? @ -[No] Poses a threat to life or bodily function? How? (Chest pain, [place], [place], pneumonia, PE, COPD, DKA, ARF, appy, cholecystitis, CVA, Diverticulitis, Homicidal, Suicidal, threat to staff... and all critical care pts) @ -[No] - Lab Data Lab Results 09/03/24 Range/Units 16:12 Urine Color Colorless Urine Appearance Clear (Clear) Urine pH 6.5 (5.0-8.0) Ur Specific [place] 1.010 (1.001-1.035) Urine Protein Negative (Negative) Urine Glucose (UA) Negative (Negative) Urine Ketones Negative (Negative) Urine Blood Negative (Negative) Urine Nitrite Negative (Negative) Urine Bilirubin Negative (Negative) Urine Urobilinogen <2.0 (<2.0) mg/dL Ur Leukocyte Esterase Small H (Negative) Urine RBC 1 (0-5) /hpf Urine WBC 3 (0-5) /hpf Disposition Clinical Impression: Mechanical back pain Disposition: HOME SELF-CARE Condition: Stable Instructions (If sedation given, give patient instructions): Acute Low Back Pain (ED) Additional Instructions: Please follow-up with your back surgeon. Return to the emergency department for new or worsening symptoms. Is patient prescribed a controlled substance at d/c from ED?: No Referrals: Annette Pedraza MD [Primary Care Provider] - 1-2 days
[2024-09-03] MEDS: ORPHENADRINE 30 MG/ML 2 ML VIAL IM STA (16:07)
[2024-09-03] MEDS: LIDOCAINE 4% PATCH TOPICAL ONE (16:09)
[2024-09-03] MEDS: KETOROLAC 15 MG/ML 1 ML VIAL IM STA (16:10)
[2024-09-03 16:29] LABS: Bilirubin,Urine Negative (Negative); Blood,Urine Negative (Negative); Color,Urine Colorless; Glucose,Urine (UA) Negative (Negative); Ketones,Urine Negative (Negative); Leukocyte Esterase,Urine Small (Negative); Nitrite,Urine Negative (Negative); PH, Urine 6.5 (5.0-8.0); Protein,Urine Negative (Negative); RBC,Urine 1 /hpf (0-5); Specific Gravity,Urine 1.010 (1.001-1.035); Urobilinogen,Urine <2.0 mg/dL (<2.0); WBC,Urine 3 /hpf (0-5)
--- NOTE | 2024-09-03 16:44 | XR ---
EXAMINATION TYPE: XR lumbar spine 2 or 3V DATE OF EXAM: 09/03/2024 CLINICAL HISTORY: pain TECHNIQUE: Three views of the lumbar spine are submitted. COMPARISON: CT abdomen and pelvis 03/12/[address] chest 09/15/2022 FINDINGS: There are 5 lumbar type vertebral bodies identified. No acute fracture. Levoscoliotic curvature of th e thoracolumbar spine with apex at the thoracolumbar junction. Postsurgical changes with bilateral pe dicular screws and rods involving L4-S1. There is fixed grade 1 anterolisthesis of L5 on S1. Grade 1 retrolisthesis L1 on L2 and L2 on L3. Cortical irregularity involving the inferior endplate of the T8 vertebral body. Multilevel disc space narrowing with endplate sclerosis and anterior osteophytosis. The overlying soft tissue appears unremarkable. IMPRESSION: 1. No acute lumbar spine fracture. 2. Age indeterminate T8 vertebral body inferior endplate fracture. Correlate with point tenderness. 3. Moderate multilevel degenerative disc disease of the thoracolumbar spine. 4. Postsurgical changes from L4 through S1 with fixed grade 1 anterolisthesis of L5 on S1. [facility], , 09/03/2024 4:42 PM
[2024-09-03 17:27] VITALS: BP 160/90; PULSE 65; RESP 16; TEMP 98
[2024-09-03] MEDS: MORPHINE SULFATE 4 MG/ML SYRINGE IM STA (17:27)
== END 2024-09-03 17:51 | disposition home or self-care (01) ==
LOC: EC 13:53
DX: M54.9 Dorsalgia, unspecified (principal); Z87.891 Personal history of nicotine dependence; Z88.6 Allergy status to analgesic agent; Z88.8 Allergy status to other drugs, medicaments and biological substances; Z88.2 Allergy status to sulfonamides; Z91.048 Other nonmedicinal substance allergy status; Z77.120 Contact with and (suspected) exposure to mold (toxic)
CPT/HCPCS: 81001; 72100; 99283; 96372 ×3; J2270; J2360; J1885